=== PATIENT | male | born 1945 | race Caucasian/White ===

== ENCOUNTER 2020-04-16 17:13 | Emergency (ER) | payer MEDICARE, OTHER ==
[~2020-04-16] VITALS: Ht 193 cm; Wt 67.1 kg
--- OUTSIDE RECORDS SUMMARY | ~2020-04-16 | XMS | Encounter Summary ---
Demographics + + + | Address | [address] | | | [place] [address] | + + + | Home Phone | | + + + | Preferred Language | Unknown | + + + | Marital Status | Single | + + + | Jain Affiliation | Unknown | + + + | Race | White | + + + | Ethnic Group | Not or | + + + Author + + + | Author | [facility] | + + + | Organization | [facility] | + + + | Address | Unknown | + + + | Phone | Unavailable | + + + Support + + +---------+ + | Name | Relationship | Address | Phone | + + +---------+ + | Lesia Iniguez | ECON | Unknown | | + + +---------+ + Care Team Providers + +------+ + | Care Military Pay Clerk Name | Role | Phone | + +------+ + | No Pcp Per Patient | PCP | Unavailable | + +------+ + Reason for Referral PROC - Dept/Practice Procedure (Routine) +--------+--------+ + + + + | Status | Reason | Specialty | Diagnoses / | Referred By | Referred To | | | | | Procedures | Contact | Contact | +--------+--------+ + + + + | Closed | | Radiation | Diagnoses | Quintin, | Eduard, | | | | Oncology | Malignant | Garfield Garcia MD | MD Alexander | | | | | neoplasm of | [place] | [address] | | | | | upper lobe | A MEDICAL | [facility] | | | | | of left lung | [address] [place], | | | | | (HCC) | [address] | [place] | | | | | Procedures | [place] | [address] | | | | | SIMULATION | [address] | Phone: | | | | | IMAGING | [place], | [phone] | | | | | | [place] [address] | Fax: | | | | | | Phone: | [phone] | | | | | | [phone] | | | | | | | Fax: | | | | | | | [phone] | | +--------+--------+ + + + + Reason for Visit PROC - Dept/Practice Procedure (Routine) +--------+--------+ + + + + | Status | Reason | Specialty | Diagnoses / | Referred By | Referred To | | | | | Procedures | Contact | Contact | +--------+--------+ + + + + | Closed | | Radiation | Diagnoses | Defdelfina, | Eduard, | | | | Oncology | Malignant | Garfield Garcia MD | MD Alexander | | | | | neoplasm of | [place] | [address] [facility] | | | | | upper lobe | A MEDICAL | [facility] | | | | | of left lung | [address] | [address] [place], | | | | | (HCC) | [address] | [place] | | | | | Procedures | [place] | [address] | | | | | SIMULATION | [address]OS[address] | Phone: | | | | | IMAGING | [place], | [phone] | | | | | | [place] [address] | Fax: | | | | | | Phone: | [phone] | | | | | | [phone] | | | | | | | Fax: | | | | | | | [phone] | | +--------+--------+ + + + + Encounter Details +--------+ + + + + | Date | Type | Department | Care Team | Description | +--------+ + + + + | 02/16/ | Hospital | Radiation Oncology | | | | 2019 | Encounter | at [facility] [address] | | | | | | [address] | | | | | | [address] | | | | | | [place], [place] | | | | | | [address] | | | | | | [phone] | | | +--------+ + + + + Social History + + + +--------+ + | Tobacco Use | Types | Packs/Day | Years | Date | | | | | Used | | + + + +--------+ + | Former Smoker | Cigars, Cigarettes | 4 | 11 | Quit: 12/2018 | + + + +--------+ + + +---+---+---+ | Smokeless Tobacco: | | | | | Never Used | | | | + +---+---+---+ + + +---------+ + | Alcohol Use | Drinks/Week | oz/Week | Comments | + + +---------+ + | No | | | | + + +---------+ + + + + | Sex Assigned at | Date Recorded | | | | + + + | Not on file | | + + + documented as of this encounter Medications at Time of Discharge + + + +---------+ + + | Medication | Sig | Dispensed | Refills | Start | End Date | | | | | | Date | | + + + +---------+ + + | ascorbic acid | Take 100 mg by mouth | | 0 | | | | (vitamin C) 100 mg | three times daily. | | | | | | oral tablet | | | | | | + + + +---------+ + + | aspirin EC 81 mg | Take 81 mg by mouth | | 0 | | | | Oral tablet,delayed | once daily. | | | | | | release (DR/EC) | | | | | | + + + +---------+ + + | cephALEXin | Take 1 Cap by mouth | 30 Cap | 0 | 02/12/20 | | | (KEFLEX) 500 mg Oral | three times daily. | | | 13 | | | capsule | | | | | | + + + +---------+ + + | cholecalciferol | Take 1,000 Units by | | 0 | | | | (Vitamin D3) | mouth once daily. | | | | | | (VITAMIN D3) 1,000 | | | | | | | unit oral capsule | | | | | | + + + +---------+ + + | clindamycin 300 mg | Take 1 Cap by mouth | 1 Cap | 0 | 02/12/20 | | | Oral capsule | every eight hours. | | | 13 | | + + + +---------+ + + | docusate sodium | Take 100 mg by mouth | | 0 | | | | (STOOL SOFTENER) 100 | two times daily. | | | | | | mg Oral capsule | | | | | | + + + +---------+ + + | finasteride 1 mg | Take 1 mg by mouth | | 0 | | | | Oral tablet | once daily. | | | | | + + + +---------+ + + | folic acid 1 mg | Take 1 mg by mouth | | 0 | | | | Oral tablet | once daily. | | | | | + + + +---------+ + + | | Take 1 Tab by mouth | | 0 | | | | HYDROcodone-acetamin | every four hours as | | | | | | ophen 5-325 mg Oral | needed. Not to | | | | | | tablet | exceed 10 tablets | | | | | | | per any 24 hour | | | | | | | period. (Not to | | | | | | | exceed 3250 mg of | | | | | | | acetaminophen from | | | | | | | all products per 24 | | | | | | | hour period.) | | | | | + + + +---------+ + + | magnesium oxide | Take 250 mg by mouth | | 0 | | | | 250 mg oral tablet | once daily. | | | | | + + + +---------+ + + | metoprolol | Take by mouth two | | 0 | | | | tartrate 10 mg/mL | times daily. | | | | | | Oral Suspension | | | | | | + + + +---------+ + + | multivitamin oral | Take 1 tablet by | | 0 | | | | tablet | mouth once daily. | | | | | + + + +---------+ + + | omeprazole 10 mg | Take 10 mg by mouth | | 0 | | | | Oral capsule,delayed | once daily. | | | | | | release(/IVONNE) | | | | | | + + + +---------+ + + documented as of this encounter Plan of Treatment Not on filedocumented as of this encounter Procedures + +--------+ + + + | Procedure Name | Priori | Date/Time | Associated Diagnosis | Comments | | | ty | | | | + +--------+ + + + | SIMULATION IMAGING | Routin | 02/16/2019 | Malignant neoplasm | Results for this | | | e | 3:03 PM | of upper lobe of | procedure are in the | | | | PDT | left lung (HCC) | results section. | + +--------+ + + + documented in this encounter Results SIMULATION IMAGING (02/16/2019 3:03 PM PDT) + + | Specimen | + + | | + + + + + | Narrative | Performed At | + + + | Refer to the encounter notes for imaging results. 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
--- OUTSIDE RECORDS SUMMARY | ~2020-04-16 | XMS | Encounter Summary ---
Demographics + + + | Address | [address] | | | [place] [address] | + + + | Home Phone | | + + + | Preferred Language | Unknown | + + + | Marital Status | | + + + | Anabaptism Affiliation | 1026 | + + + | Race | White | + + + | Ethnic Group | Not or | + + + Author + + + | Author | [facility] | | | and [place] | + + + | Organization | [facility] | | | and [place] | + + + | Address | Unknown | + + + | Phone | Unavailable | + + + Support + + + + + | Name | Relationship | Address | Phone | + + + + + | Eliseo Carter | ECON | [address] | | | [place] | | [place] | | | | | [address] | | + + + + + | Jag Iniguez | ECON | Unknown | | + + + + + Care Team Providers + +------+ + | Care Sports Director Name | Role | Phone | + +------+ + | David Whitfield | PCP | | | MD | | | + +------+ + Encounter Details +--------+ + + + + | Date | Type | Department | Care Team | Description | +--------+ + + + + | 11/21/ | Imaging | [facility] | Provider, | | | 2019 | Exam | [facility] | [address] | | | | | IMAGING [address] | [address] | | | | | [address] | [place] [address] | | | | | [place] [address] | | | | | | [phone] | | | +--------+ + + + + Social History + +-------+ +--------+------+ | Tobacco Use | Types | Packs/Day | Years | Date | | | | | Used | | + +-------+ +--------+------+ | Never Assessed | | | | | + +-------+ +--------+------+ + + + | Sex Assigned at [...] | + +--------+ + + + | CT CHEST WO CONTRAST | Routin | 09/19/2017 | | Results for this | | | e | 1:40 PM | | procedure are in the | | | | PST | | results section. | + +--------+ + + + documented in this encounter Results CT Chest wo Contrast (09/19/2017 1:40 PM PST) + + | Specimen | + + | | + + + + + | Narrative | Performed At | + + + | External films for comparison only | [facility] | | | | | No results will be in the chart. | | + + + + +---------+ + + | Performing | Address | City/State/Zipcode | Phone Number | | Organization | | | | + +---------+ + + | [facility] | | | | + +---------+ + + documented in this encounter Visit Diagnoses Not on filedocumented in this encounter"
--- OUTSIDE RECORDS SUMMARY | ~2020-04-16 | XMS | Encounter Summary ---
Demographics + + + | Address | [address] | | | [place] [address] | + + + | Home Phone | | + + + | Preferred Language | Unknown | + + + | Marital Status | Single | + + + | Orthodoxy Affiliation | Unknown | + + + | Race | White | + + + | Ethnic Group | Not or | + + + Author + + + | Organization | Unknown | + + + | Address | Unknown | + + + | Phone | Unavailable | + + + Support + + +---------+ + | Name | Relationship | Address | Phone | + + +---------+ + | Lesia Iniguez | ECON | Unknown | | + + +---------+ + Care Team Providers + +------+ + | Care Police Or Patrol Park Officer Name | Role | Phone | + +------+ + | No Pcp Per Patient | PCP | Unavailable | + +------+ + Encounter Details +--------+--------+ + + + | Date | Type | Department | Care Team | Description | +--------+--------+ + + + | 03/02/ | Travel | | | | | 2019 | | | | | +--------+--------+ + + + Social History + + [...] Not on filedocumented as of this encounter Visit Diagnoses Not on filedocumented in this encounter"
--- OUTSIDE RECORDS SUMMARY | ~2020-04-16 | XMS | Encounter Summary ---
Demographics + + + | Address | [address] | | | [place] [address] | + + + | Home Phone | | + + + | Preferred Language | Unknown | + + + | Marital Status | Single | + + + | Jehovah'S Witness Affiliation | Unknown | + + + [...] Team Providers + +------+ + | Care Hotel Controller Name | Role | Phone | + +------+ + | No Pcp Per Patient | PCP | Unavailable | + +------+ + Encounter Details +--------+--------+ + + + | Date | Type | Department | Care Team | Description | +--------+--------+ + + + | 07/01/ | Travel | | | | | [...]
--- OUTSIDE RECORDS SUMMARY | ~2020-04-16 | XMS | Encounter Summary ---
Demographics + + + | Address | [address] | | | [place] [address] | + + + | Home Phone | | + + + | Preferred Language | Unknown | + + + | Marital Status | Single | + + + | Mormonism Affiliation | Unknown | + + + | Race | White | + + + | Ethnic Group | Not or | + + + Author + + + | Author | [facility] | + + + | Organization | [facility] | + + + | Address | Unknown | + + + | Phone | Unavailable | + + + Support + + +---------+ + | Name | Relationship | Address | Phone | + + +---------+ + | Lesia Iniguez | ECON | Unknown | | + + +---------+ + Care Team Providers + +------+ + | Care Billing Clinician Name | Role | Phone | + +------+ + | No Pcp Per Patient | PCP | Unavailable | + +------+ + Reason for Visit Intake Referral (Routine) +--------+--------+ + + + + | Status | Reason | Specialty | Diagnoses / | Referred By | Referred To | | | | | Procedures | Contact | Contact | +--------+--------+ + + + + | Closed | | Radiation | Diagnoses | Quintin | [facility] | | | | Oncology | Malignant | Garfield Garcia MD | [facility] | | | | | neoplasm of | [place] | [address] | | | | | upper lobe, | A MEDICAL | [address] | | | | | left | [address] | [place] | | | | | bronchus or | [address] | [address] | | | | | lung | [place] | floor | | | | | | [address] | [place], [place] | | | | | | [place], | [address] | | | | | | [place] [address] | Phone: | | | | | | Phone: | [phone] | | | | | | [phone] | Fax: | | | | | | Fax: | [phone] | | | | | | [phone] | | +--------+--------+ + + + + Encounter Details +--------+ + + + + | Date | Type | Department | Care Team | Description | +--------+ + + + + | 03/04/ | Hospital | Radiation Oncology | | | | 2019 | Encounter | at [facility] [address] | | | | | | [address] | | | | | | [address] | | | | | | [place], [place] | | | | | | [address] | | | | | | [phone] | | | +--------+ + + + [...] daily. | | | | | | release(/EC) | | | | | | + + + +---------+ + + documented as of this encounter Plan of Treatment Not on filedocumented as of this encounter Visit Diagnoses Not on filedocumented in this encounter"
--- OUTSIDE RECORDS SUMMARY | ~2020-04-16 | XMS | Encounter Summary ---
Demographics + + + | Address | [address] | | | [place] [address] | + + + | Home Phone | | + + + | Preferred Language | Unknown | + + + | Marital Status | | + + + | Adventism Affiliation | 1026 | + + + | Race | White | + + + | Ethnic Group | Not or | + + + Author + + + | Author | [facility] | | | and [place] | + + + | Organization | [facility] | | | [...] [place] | | | | | [address] | | + + + + + | Jag Iniguez | ECON | Unknown | | + + + + + Care Team Providers + +------+ + | Care Registered Physical Therapist Name | Role | Phone | + +------+ + | David Whitfield | PCP | | | MD | | | + +------+ + Encounter Details +--------+ + + + + | Date | Type | Department | Care Team | Description | +--------+ + + + + | 11/24/ | Imaging | [facility] | Provider, | | | 2019 | Exam | [facility] | [address] | | | | | IMAGING [address] | [address] | | | | | [address] | [place] [address] | | | | | [place] [address] | | | | | | [phone] | | | +--------+ + + + [...] | + +--------+ + + + | XR CHEST 2 VIEWS | Routin | 04/23/2018 | | Results for this | | | e | 2:00 PM | | procedure are in the | | | | PDT | | results section. | + +--------+ + + + documented in this encounter Results XR Chest 2 Vws (04/23/2018 2:00 PM PDT) + + | Specimen | [...]
--- OUTSIDE RECORDS SUMMARY | ~2020-04-16 | XMS | Encounter Summary ---
Demographics + + + | Address | [address] | | | [place] [address] | + + + | Home Phone | | + + + | Preferred Language | Unknown | + + + | Marital Status | | + + + | Baptist Affiliation | 1026 | + + + | Race | White | + + + | Ethnic Group | Not or | + + + Author + + + | Author | [facility] | | | and [place] | + + + | Organization | [facility] | | | and [...] [place] | | | | | [address] | | + + + + + | Jag Iniguez | ECON | Unknown | | + + + + + Care Team Providers + +------+ + | Care Scrap Iron Loader Name | Role | Phone | + +------+ + | Skyla Dempsey | PCP | | + +------+ + Reason for Referral Diagnostic/Screening (Routine) +--------+--------+ + + + + | Status | Reason | Specialty | Diagnoses / | Referred By | Referred To | | | | | Procedures | Contact | Contact | +--------+--------+ + + + + | Closed | | Radiology | Diagnoses | Roselyn, | [facility] | | | | | Solitary | Skyla, NURSE DISCHARGE PLANNER | [facility] | | | | | pulmonary | [address] [facility] | | | | | nodule | [facility] | MEDICAL | | | | | Procedures | [address] [place] | [facility] [address] | | | | | PET CT Skull | [place], [place] | [place] | | | | | Base To Mid | [id number] | [place], | | | | | Thigh | Phone: | [place] [address] | | | | | | [phone] | Phone: | | | | | | Fax: | [phone] | | | | | | [phone] | Fax: | | | | | | | [phone] | +--------+--------+ + + + + Reason for Visit Auth/Cert +--------+--------+ + + + + | Status | Reason | Specialty | Diagnoses / | Referred By | Referred To | | | | | Procedures | Contact | Contact | +--------+--------+ + + + + | | | | | | | +--------+--------+ + + + + Encounter Details +--------+ + + + + | Date | Type | Department | Care Team | Description | +--------+ + + + + | 11/27/ | Hospital | [facility] | Skyla Dempsey FNP | Solitary pulmonary | | 2019 | Encounter | MED CTR PET SCAN | [address] | nodule | | | | [address] [place] | [place], [place] | | | | | [place] [address] | [address] | | | | | [phone] | | | +--------+ + + + [...] | + +--------+ + + + | PET CT SKULL BASE TO | Routin | 11/27/2018 | Solitary pulmonary | Results for this | | MID THIGH | e | 12:41 PM | nodule | procedure are in the | | | | PDT | | results section. | + +--------+ + + + documented in this encounter Results PET CT Skull Base To Mid Thigh (11/27/2018 12:41 PM PDT) + + | Specimen | + + | | + + + +--------- ------+ | Narrative | Performe d At | + +--------- ------+ | PET CT SKULL | [facility] | | BASE TO MID THIGH 11/27/2018 10:21 AM HISTORY: Solitary pulmonary | | | nodule. COMPARISON: 09/29/2018, 11/03/2018, 04/08/2018 PROTOCOL: The | | | patient was initially injected with 8.9 mCi FDG F-18. After | | | aone-hour delay, whole body PET images were acquired. Low dose | | | nondiagnostic CTimages were obtained for attenuation correction and | | | fusion. The patient'sfasting blood glucose level at the time of | | | injection was 102 mg/dL. FINDINGS:HEAD AND NECK:No suspicious FDG | | | activity identified. Moderate mucosal thickening of the left maxillary | | | sinus. Sialolithiasis seen inthe left palatine and adenoid tonsils. | | | Presumably physiologic uptake within thesalivary glands and vocal | | | folds. CHEST:15 x 10 mm spiculated nodule in the left lung apex | | | demonstrates avid FDG uptake(SUV max 10.8). No suspicious | | | lymphadenopathy. Multiple other areas ofminimal/tiny ground glass | | | nodularity as well as a few tiny 2 to 3 mm nodules arereidentified | | | which are stable and without evidence of FDG uptake. A few othertiny | | | areas of minimal scarring are slightly irregular nodularity are also | | | seenwithout FDG uptake. Coronary artery calcifications are present. | | | ABDOMEN AND PELVIS:No suspicious FDG uptake identified. Presumably | | | physiologic activity within thebowel, kidneys, liver, and bladder. A | | | few calcified gallstones are present. Small nonobstructive punctate | | | calculiare present bilaterally. Severe aortic and aortic branching | | | vesselatherosclerotic calcifications with multiple areas of stenosis | | | of the iliacvessels. Multiple noninflamed colonic diverticula are seen | | | involving the sigmoidcolon. Severe heterogeneous enlargement of the | | | prostate gland. Urinary bladderwall is mildly thickened, likely | | | related to nondistention and chronic outletobstruction in this patient | | | with BPH. More focal area of FDG uptake within theright common iliac | | | bifurcation/proximal sternal iliac junction is thought torepresent | | | adjacent bowel as correlating with noncontrast CT imaging. SOFT | | | TISSUES AND OSSEOUS STRUCTURES:No suspicious FDG uptake is identified. | | | Multilevel cervical, thoracic, and lumbar degenerative disc disease | | | and facetspondylosis. No convincingly suspicious lytic or blastic | | | lesion identified. Afew sclerotic foci are reidentified in the pelvis | | | which appear benign boneislands. IMPRESSION -15 x 10 mm spiculated | | | nodule in the left lung apex demonstrates avid FDG uptake(SUV max | | | 10.8). --Findings are highly concerning for lung neoplasm. No | | | suspicious lymphadenopathy to suggest metastatic disease. Multiple | | | other areas of minimal/tiny ground glass nodularity as well as a | | | fewtiny 2 to 3 mm nodules are reidentified which are stable and | | | without evidence ofFDG uptake. These are thought to represent chronic | | | changes at this time withcontinued low to CT of the chest surveillance | | | imaging recommended. Minimal nonobstructive nephrolithiasis. | | | Significant BPH. Dictated and Signed by: Howard Mahoney MD | | | Electronically signed: 12/02/2018 10:31 PM | | | | | | Multilevel cervical, thoracic, and lumbar degenerative disc disease and facet | | |spondylosis. No convincingly suspicious lytic or blastic lesion identified. A | | |few sclerotic foci are reidentified in the pelvis which appear benign bone | | |islands. | | | | | |IMPRESSION - | | |15 x 10 mm spiculated nodule in the left lung apex demonstrates avid FDG uptake | | |(SUV max 10.8). | | |--Findings are highly concerning for lung neoplasm. | | | | | |No suspicious lymphadenopathy to suggest metastatic disease. | | | | | |Multiple other areas of minimal/tiny ground glass nodularity as well as a few | | |tiny 2 to 3 mm nodules are reidentified which are stable and without evidence of | | |FDG uptake. These are thought to represent chronic changes at this time with | | |continued low to CT of the chest surveillance imaging recommended. | | | | | |Minimal nonobstructive nephrolithiasis. | | | | | |Significant BPH. | | | | | |Dictated and Signed by: Howard Mahoney MD | | | Electronically signed: 12/02/2018 10:31 PM | | | | | + +--------- ------+ + + | Procedure Note | + + | Bobby, Rad Results In - 12/02/2018 10:[address] SKULL BASE TO MID THIGH | | 11/27/2018 10:21 AMHISTORY: Solitary pulmonary nodule.COMPARISON: 09/29/2018, 11/03/2018, | | 04/08/2018PROTOCOL: The patient was initially injected with 8.9 mCi FDG F-18. After | | aone-hour delay, whole body PET images were acquired. Low dose nondiagnostic CTimages | | were obtained for attenuation correction and fusion. The patient'sfasting blood glucose | | level at the time of injection was 102 mg/dL.FINDINGS:HEAD AND NECK:No suspicious FDG | | activity identified.Moderate mucosal thickening of the left maxillary sinus. | | Sialolithiasis seen inthe left palatine and adenoid tonsils. Presumably physiologic | | uptake within thesalivary glands and vocal folds.CHEST:15 x 10 mm spiculated nodule in | | the left lung apex demonstrates avid FDG uptake(SUV max 10.8). No suspicious | | lymphadenopathy. Multiple other areas ofminimal/tiny ground glass nodularity as well as | | a few tiny 2 to 3 mm nodules arereidentified which are stable and without evidence of | | FDG uptake. A few othertiny areas of minimal scarring are slightly irregular nodularity | | are also seenwithout FDG uptake. Coronary artery calcifications are present.ABDOMEN AND | | PELVIS:No suspicious FDG uptake identified. Presumably physiologic activity within | | thebowel, kidneys, liver, and bladder.A few calcified gallstones are present. Small | | nonobstructive punctate calculiare present bilaterally. Severe aortic and aortic | | branching vesselatherosclerotic calcifications with multiple areas of stenosis of the | | iliacvessels. Multiple noninflamed colonic diverticula are seen involving the | | sigmoidcolon. Severe heterogeneous enlargement of the prostate gland. Urinary | | bladderwall is mildly thickened, likely related to nondistention and chronic | | outletobstruction in this patient with BPH. More focal area of FDG uptake within | | theright common iliac bifurcation/proximal sternal iliac junction is thought torepresent | | adjacent bowel as correlating with noncontrast CT imaging.SOFT TISSUES AND OSSEOUS | | STRUCTURES:No suspicious FDG uptake is identified. Multilevel cervical, thoracic, and | | lumbar degenerative disc disease and facetspondylosis. No convincingly suspicious lytic | | or blastic lesion identified. Afew sclerotic foci are reidentified in the pelvis which | | appear benign boneislands.IMPRESSION -15 x 10 mm spiculated nodule in the left lung apex | | demonstrates avid FDG uptake(SUV max 10.8). --Findings are highly concerning for lung | | neoplasm.No suspicious lymphadenopathy to suggest metastatic disease. Multiple other | | areas of minimal/tiny ground glass nodularity as well as a fewtiny 2 to 3 mm nodules are | | reidentified which are stable and without evidence ofFDG uptake. These are thought to | | represent chronic changes at this time withcontinued low to CT of the chest surveillance | | imaging recommended.Minimal nonobstructive nephrolithiasis.Significant BPH.Dictated and | | Signed by: Howard Mahoney MD Electronically signed: 12/02/2018 10:31 PM | |atherosclerotic calcifications with multiple areas of stenosis of the iliac | |vessels. Multiple noninflamed colonic diverticula are seen involving the sigmoid | |colon. Severe heterogeneous enlargement of the prostate gland. Urinary bladder | |wall is mildly thickened, likely related to nondistention and chronic outlet | |obstruction in this patient with BPH. More focal area of FDG uptake within the | |right common iliac bifurcation/proximal sternal iliac junction is thought to | |represent adjacent bowel as correlating with noncontrast CT imaging. | | | |SOFT TISSUES AND OSSEOUS STRUCTURES: | |No suspicious FDG uptake is identified. | | | | Multilevel cervical, thoracic, and lumbar degenerative disc disease and facet | |spondylosis. No convincingly suspicious lytic or blastic lesion identified. A | |few sclerotic foci are reidentified in the pelvis which appear benign bone | |islands. | | | |IMPRESSION - | |15 x 10 mm spiculated nodule in the left lung apex demonstrates avid FDG uptake | |(SUV max 10.8). | |--Findings are highly concerning for lung neoplasm. | | | |No suspicious lymphadenopathy to suggest metastatic disease. | | | |Multiple other areas of minimal/tiny ground glass nodularity as well as a few | |tiny 2 to 3 mm nodules are reidentified which are stable and without evidence of | |FDG uptake. These are thought to represent chronic changes at this time with | |continued low to CT of the chest surveillance imaging recommended. | | | |Minimal nonobstructive nephrolithiasis. | | | |Significant BPH. | | | |Dictated and Signed by: Howard Mahoney MD | | Electronically signed: 12/02/2018 10:31 PM | + + + +---------+ + + | Performing | Address | City/State/Zipcode | Phone Number | | Organization | | | | + +---------+ + + | [facility] | | | | + +---------+ + + documented in this encounter Visit Diagnoses + + | Diagnosis | + + | Solitary pulmonary nodule | + + documented in this encounter Administered Medications + +--------+ + +------+------+ | Medication Order | MAR | Action | Dose | Rate | Site | | | Action | Date | | | | + +--------+ + +------+------+ | fluorine-18 FDG injection 8.86 | Given | 16/ | 8.86 | | | | millicurie 8.86 millicurie, | | 19 10:21 | millicur | | | | Intravenous, ONCE, [facility] 11/27/18 at | | AM PDT | ies | | | | 1030, For 1 dose | | | | | | + +--------+ + +------+------+ +---+---+ | | | +---+---+ documented in this encounter"
--- OUTSIDE RECORDS SUMMARY | ~2020-04-16 | XMS | Encounter Summary ---
Demographics + + + | Address | [address] | | | [place] [address] | + + + | Home Phone | | + + + | Preferred Language | Unknown | + + + | Marital Status | Single | + + + | Faith Affiliation | Unknown | + + + | Race | White | + + + | Ethnic Group | Not or | + + + Author + + + | Author | [facility] | + + + | Organization | [facility] | + + + | Address | Unknown | + + + | Phone | Unavailable | + + + Support + + +---------+ + | Name | Relationship | Address | Phone | + + +---------+ + | Lesia Iniguez | ECON | Unknown | | + + +---------+ + Care Team Providers + +------+ + | Care [facility] Traffic [facility] Specialist Center Name | Role | Phone | + +------+ + | No Pcp Per Patient | PCP | Unavailable | + +------+ + Reason for Visit + +--------+ + | Reason | Onset | Comments | | | Date | | + +--------+ + | RT Treatment Summary | 03/06/ | | | | 2019 | | + +--------+ + Encounter Details +--------+ + + + + | Date | Type | Department | Care Team | Description | +--------+ + + + + | 03/06/ | Documentati | Radiation Oncology | Zhang Myles MD | RT Treatment Summary | | 2019 | on | at [facility] [address] | [address] [facility] | | | | | [address] | [address] [place], | | | | | [place], [address] floor | [place] [address] | | | | | [place], [place] | [phone] | | | | | [address] | | | | | | [phone] | | | +--------+ + + + [...] + + documented as of this encounter Miscellaneous Notes Telephone Encounter - Zhang Myles MD - 10/20/2019 11:58 AM PD[facility]AD[facility] IDENTIFICATION: Yoni Iniguez is a 73 y.o. 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 TREATMENT TOLERANCE AND RESPONSE: The patient tolerated treatment well without unexpected or significant acute side effects. CTCAE 5.0 Common symptoms: G1 Fatigue (relieved by rest) FOLLOW UP: He will be scheduled for a follow up with Dr. Chapa. For further details about the treatment plan please contact our office at [phone]. Zhang Myles MD Dept of Radiation Medicine [facility] documented in this encounte r Plan of Treatment Not on filedocumented as of this encounter Visit Diagnoses Not on filedocumented in this encounter"
--- OUTSIDE RECORDS SUMMARY | ~2020-04-16 | XMS | Encounter Summary ---
Demographics + + + | Address | [address] | | | [place] [address] | + + + | Home Phone | | + + + | Preferred Language | Unknown | + + + | Marital Status | Single | + + + | Bahai Affiliation | Unknown | + + + [...] Team Providers + +------+ + | Care Supply Chain Buyer Name | Role | Phone | + +------+ + | No Pcp Per Patient | PCP | Unavailable | + +------+ + Encounter Details +--------+--------+ + + + | Date | Type | Department | Care Team | Description | +--------+--------+ + + + | 02/24/ | Travel | | | | | [...]
--- OUTSIDE RECORDS SUMMARY | ~2020-04-16 | XMS | Encounter Summary ---
Demographics + + + | Address | [address] | | | [place] [address] | + + + | Home Phone | | + + + | Preferred Language | Unknown | + + + | Marital Status | Single | + + + | Moravian Affiliation | Unknown | + + + [...] Team Providers + +------+ + | Care Building Serviceman Name | Role | Phone | + +------+ + | No Pcp Per Patient | PCP | Unavailable | + +------+ + Encounter Details +--------+--------+ + + + | Date | Type | Department | Care Team | Description | +--------+--------+ + + + | 02/16/ | Travel | | | | | [...]
--- OUTSIDE RECORDS SUMMARY | ~2020-04-16 | XMS | Encounter Summary ---
Demographics + + + | Address | [address] | | | [place] [address] | + + + | Home Phone | | + + + | Preferred Language | Unknown | + + + | Marital Status | | + + + | Hoahaoism Affiliation | 1026 | + + + | Race | White | + + + | Ethnic Group | Not or | + + + Author + + + | Author | [facility] | | | and [place] | + + + | Organization | [facility] | | | and [...] [place] | | | | | [address] | | + + + + + | Jag Iniguez | ECON | Unknown | | + + + + + Care Team Providers + +------+ + | Care Electronic Controls Repairer Supervisor Name | Role | Phone | + +------+ + PCP | Unavailable | + +------+ + Encounter Details +--------+ + + + + | Date | Type | Department | Care Team | Description | +--------+ + + + + | 05/16/ | Hospital | [facility] | | | | 1999 | Encounter | MED CTR XRAY [address] | | | | | | [place] | | | | | | [place] [address] | | | | | | [phone] | | | +--------+ + + + [...]
--- OUTSIDE RECORDS SUMMARY | ~2020-04-16 | XMS | Encounter Summary ---
Demographics + + + | Address | [address] | | | [place] [address] | + + + | Home Phone | | + + + | Preferred Language | Unknown | + + + | Marital Status | Single | + + + | Mormon Affiliation | Unknown | + + + | Race | White | + + + | Ethnic Group | Not or | + + + Author + + + | Author | [facility] | + + + | Organization | [facility] | + + + | Address | Unknown | + + + | Phone | Unavailable | + + + Support + + +---------+ + | Name | Relationship | Address | Phone | + + +---------+ + | Lesia Iniguez | ECON | Unknown | | + + +---------+ + Care Team Providers + +------+ + | Care Finance Manager Name | Role | Phone | + +------+ + | No Pcp Per Patient | PCP | Unavailable | + +------+ + Reason for Visit + + + | Reason | Comments | + + + | Mohs' chemosurgery | scc penis | + + + Other (Routine) +--------+ + + + + + | Status | Reason | Specialty | Diagnoses / | Referred By | Referred To | | | | | Procedures | Contact | Contact | +--------+ + + + + + | Closed | Specialty | Dermatology | Diagnoses | Non-[facility] | Drm Surg | | | Services | | Personal | Epic Dept | Outpt Hos | | | Required | | history of | | [facility] [address] | | | | other | | [address] | | | | | malignant | | Center for | | | | | neoplasm of | | Health and | | | | | skin | | Healing, | | | | | Suspected | | Building [address], | | | | | SCC on penis | | 5th Floor | | | | | Procedures | | [place], [place] | | | | | [facility] | | [address] | | | | | | | Phone: | | | | | | | [phone] | | | | | | | Fax: | | | | | | | [phone] | +--------+ + + + + + Encounter Details +--------+ + + + + | Date | Type | Department | Care Team | Description | +--------+ + + + + | 02/11/ | Procedure | Dermatology | Aide Linares MD | [facility]' chemosurgery | | 2012 | | Surgery at [facility] [address] | (scc penis) | | | | [address] | [place], [place] | | | | | for Health and | [address] | | | | | [place] [address], | [phone] | | | | | [address] [place] [address] | | | | | | [place], [place] | | | | | | [address] | | | | | | [phone] | | | +--------+ + + + + Social History + + + +--------+------+ | Tobacco Use | Types | Packs/Day | Years | Date | | | | | Used | | + + + +--------+------+ | Current Every Day | Cigars, Cigarettes | 4 | | | | Smoker | | | | | + + + +--------+------+ + + +---------+ + | Alcohol Use | Drinks/Week | oz/Week | Comments | + + +---------+ + | No | | | | + + +---------+ + + + + | Sex Assigned at | Date Recorded | | | | + + + | Not on file | | + + + documented as of this encounter Last Filed Vital Signs + +---------+ + + | Vital Sign | Reading | Time Taken | Comments | + +---------+ + + | Blood Pressure | 106/58 | 02/11/2013 9:19 AM | | | | | PDT | | + +---------+ + + | Pulse | 94 | 02/11/2013 9:19 AM | | | | | PDT | | + +---------+ + + | Temperature | - | - | | + +---------+ + + | Respiratory Rate | - | - | | + +---------+ + + | Oxygen Saturation | - | - | | + +---------+ + + | Inhaled Oxygen | - | - | | | Concentration | | | | + +---------+ + + | Weight | - | - | | + +---------+ + + | Height | - | - | | + +---------+ + + | Body Mass Index | - | - | | + +---------+ + + documented in this encounter Patient Instructions Patient Instructions Mikaela Horvath LPN - 02/11/2013 2:[address] [facility] General Care-All Wounds -Apply ice over the surgical site 10 minutes for every hour for the first day. -Avoid aspirin, ibuprofen, alcohol and smoking for the next 5 days. -Reduce strenuous activity for the next week. -Do not get bandage wet. Change bandage in 24 hours. -Take Tylenol, 2 tablets every 4-6 hours as needed for pain: not to exceed 3 grams in one 2 4 hours period; or prescription as directed. -For wounds on the arms or legs, keep site elevated above the heart for the next 24 hours. -For lip wounds, avoid hard, crunchy food for several days. Expect swelling for up to 1 wee k. -If bleeding occurs, hold direct pressure for 20 minutes. If the bleeding does not discont inue, please call the office. Suture/Staple Wound Care Clean line of stitches or pascual daily with soap and water. The area should be clear of an y drainage or crusts. Apply petrolatum ointment to suture/staple line. Do not cover if possible. If needed, you may cover with Telfa and tape into place. When uncovered, reapply ointment throughout day to keep moist with layer at all times. You may get the area wet in the shower after bandage is removed, however, do not let the wa ter hit the wound directly. Pat the area dry after showering, and reapply ointment. If you have steri-strips then replace them when they fall off in approximately 10-14 days. You may get the area wet. What to Expect------Sutured/Stapled Wounds You may experience numbness that is usually temporary. There will be bruising and swelling that can last between 1 and 2 weeks. Areas of the mouth and eye may last longer. The sutured area will be pink, swollen and tender for the first few days. The area should l ook and feel better each day after this point. Skin near the surgery site may appear and feel tight. This relaxes in time. A scar is stron g at 30 days, but not mature for 6 months or more. Stitches below the skin will be absorbed by the body within 2-3 months. Sometimes a stitch works its way up through the skin; this is not necessarily a problem. If you have any questions about this, please call. Call the Office If... a. any of the bandages become saturated with blood. If your site bleeds, hold direct press ure for 20 minutes and phone the clinic. b. you are having a great deal of pain, not relieved by Tylenol or your prescription medic ation. Pain after 48 hours is not expected. c. the wound appears to be worse instead of better each day (Increased pain, redness, warm th and drainage) d. your graft bandage becomes wet with drainage or is more painful than the day before How to Reach Us [phone] Toll-free [phone] Evenings and Weekends: [phone] documented in this encounter Progress Notes Aide Linares MD - 02/11/2013 5:15 PM PDT Chief Complaint: Squamous Cell Carcinoma located on the left lateral penile base. Referring Physician: Jordi Martinez History of Present Illness: Patient presents with the above diagnosis which has been present for 3 years. Previous callie tment included cryotherapy to area one time approx 3 years ago. Past history of other skin cancers yes. Past Medical History reviewed. Review of Systems: Negative for other skin complaints. Negative for constitutional sympto ms. Physical Examination: BP 106/58 | Pulse 94 Patient is alert and oriented. Extra ocular movements are intact. Located on the left lat eral penile base is an exophytic, dome-shaped nodule with central crateriform ulceration and hyperkeratosis. There is no palpable lymphadenopathy. Assessment and Plan: Primary Squamous Cell Carcinoma located on the left lateral penile bas e. Mohs micrographic surgery is indicated because of ill-defined borders. The procedure and alternatives were discussed, questions were answered and the risks includ ing but not limited to infection, bleeding, scarring, unsatisfactory results, nerve damage a nd recurrence were explained. The patient felt comfortable and wished to proceed with Mohs surgery later on today. Tissue obtained during this procedure was processed, read and resulted in [facility], [address] [facility] [place] [address] MOHS MICROGRAPHIC SURGERY PROCEDURE NOTE 02/11/2013 ATTENDING SURGEON: Aide Linares M.D. CHICKEN STUFFER: Marixa Agrawal M.D. ASSESSMENT: Taken and Recorded INDICATIONS: Yoni Iniguez is a 67 y.o. male who presents with primary squamous cell ca rcinoma located on the left lateral penile base, with a pretreatment lesion size of 2.5x 2.2 cm. Because of the size, site, poorly defined borders and diagnosis of the lesion, it is f elt that it is best treated with Mohs micrographic surgery. Alternative surgical and nonsur gical therapies were discussed. The risks including but not limited to bleeding, infection, scarring, nerve damage, unsatisfactory results, and recurrence were explained to the patien t prior to obtaining written and verbal informed consent for Mohs surgery. STAGE 1: The patient was placed supine on the operating room table. The wound was defined and infiltrated with 1% Lidocaine with Epinephrine. The area was then debulked. Initial ex cisions were made around the clinical and debulk markings and hemostasis was obtained by madi ctrodessication. A dressing was placed. Tissue was divided into two specimens which were m apped, color coded at their margins, and frozen sectioning was performed. Microscopic tumor was found persisting in 2 of the specimens. The histology showed full thickness epithelial hyperplasia with dyskeratotic and pleomorphic keratinocytes extending broadly through the e ntire epidermis and reticular dermis. STAGE 2: The patient was returned to the operative suite. The area of positivity was deli neated, infiltrated with 1% Lidocaine with Epinephrine, and excised. Tissue was divided int o one specimen which was again marked, color-coded, and frozen sectioning was performed. H emostasis was obtained in the usual manner, and a dressing placed. Microscopic tumor was fo und persisting in none of the specimens. With the lesion clear of microscopic tumor, surger y was considered complete. Following surgery, the defect measures as follows: 3.0cm x 4.2cm . FINAL DIAGNOSIS: Primary squamous cell carcinoma of the left lateral penile base. CONDITION AT TERMINATION OF THERAPY: Carcinoma removed. Patient reports no pain after the procedure. CLOSURE: RECONSTRUCTION PROCEDURE NOTE COMPLEX LINEAR LAYERED CLOSURE SURGEON: Aide Linares M.D. PUBLIC HEALTH ASSISTANT: Marixa Agrawal M.D. Prior to beginning the procedure, patient identity was verified, as well as the procedure t o be performed and the site. All equipment required was ready and available. The patient wa s positioned appropriately. INDICATIONS: The patient was left with a 3.0 x 4.2 cm. defect on the left lateral penile b ase following removal of a squamous cell carcinoma with Mohs micrographic surgery. Various reconstructive modalities were discussed with the patient, and it was decided that a complex linear layered closure would best preserve normal anatomical and functional relationships. After a discussion of the risks including but not limited to bleeding, scarring, infection, nerve damage, unsatisfactory results, and wound dehiscense, informed consent was obtained, and the patient underwent the procedure as follows. PROCEDURE: The patient was taken to the operative suite and placed supine on the operating room table. The area was anesthetized with 1% Lidocaine with Epinephrine. The area was wash ed with Betadine, rinsed with sterile saline, and draped with sterile towels. The wound edge s were debeveled, and because of the tension the wound was undermined extensively in all dir ections. Hemostasis was obtained with spot electrodessication. The deep subcutaneous tissue including fascia and muscle was re-approximated using 4-0 Polysorb buried sutures. The derm is was carefully reapproximated using 4-0 and 5-0 Polysorb buried sutures. Redundant cones w ere removed as Burow's triangles superior and inferior to align with the relaxed skin tensio n lines in a curvilinear fashion. The epidermis was closed and approximated using 5-0 chromi c gut sutures. A sterile pressure dressing was applied, and wound care instructions were giv en. Final wound length 7.4 cm. FINAL DIAGNOSIS: Primary squamous cell carcinoma of the left lateral penile base. FINAL PROCEDURE: Complex linear layered closure COMPLICATIONS: None Patient reports no pain after the procedure. Ayse Amaro LPN - 02/11/2013 2:49 PM PDTPatient/Family Readiness to Learn: The following pertains to: patient. Accurately explains reasons for visit and accurately relates medical history: yes. Accurately describes the likely alteration in self-care routines/abilities resulting from t reatment: yes. Able to provide names and reasons for taking current medications and dosages: yes. Able to follow proposed treatment plan for diet, activity and/or medication without difficu lty: yes. Learning Needs: None identified and Wound care. Barriers: None identified. Referral To: No referral required. Preferred Learning Method: Verbal , Written and Visual/demonstration. Teaching: Written instructions given and explained: . Patient/Family Response to Teaching: Verbalizes understanding of information/instructions given: Yes. Demonstrates ability to perform required procedure: Yes. documented in this encounter Procedure Notes Other, Faculty - 04/08/2013 10:41 AM PDTAssociated Order(s): PROCEDURE NOTEElectronically s igned by Faculty Other at 04/08/2013 10:41 AM PDTdocumented in this encounter Miscellaneous Notes Scan - Other, Faculty - 02/27/2013 1:01 PM PDTElectronically signed by Faculty Other at 1:01 PM PDTScan - Other, Faculty - 02/16/2013 3:04 PM PDT can - Other, Faculty - 02/16/2013 3:04 PM PDTElec tronically signed by Faculty Other at 02/16/2013 3:04 PM PDTScan - Other, Faculty - 013 2:47 PM PDT documented in this encounter Plan of Treatment Not on filedocumented as of this encounter Procedures + +--------+ + + + | Procedure Name | Priori | Date/Time | Associated Diagnosis | Comments | | | ty | | | | + +--------+ + + + | PROCEDURE NOTE | Routin | 08/18/2015 | | Results for this | | | e | 9:23 PM | | procedure are in the | | | | PST | | results section. | + +--------+ + + + | W[place] RADHA ADDL STAGE | Routin | 02/12/2013 | Squamous cell | | | | e | 4:15 PM | carcinoma of penis | | | | | PDT | (HCC) | | + +--------+ + + + | MOSHE GARCIA,1 | Routin | 02/12/2013 | Squamous cell | | | STAGE,H/N/HF/G | e | 4:15 PM | carcinoma of penis | | | | | PDT | (HCC) | | + +--------+ + + + | [place] GERARD CMPL WND | Routin | 02/12/2013 | Squamous cell | | | HEAD,FAC,HAND | e | 4:15 PM | carcinoma of penis | | | 2.6-7.5 | | PDT | (HCC) | | + +--------+ + + + documented in this encounter Results PROCEDURE NOTE (08/18/2015 9:23 PM PST) + + | Transcriptions | + + | Marissa Can - 04/08/2013 10:41 AM PDT | + + documented in this encounter Visit Diagnoses + + | Diagnosis | + + | 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
--- OUTSIDE RECORDS SUMMARY | ~2020-04-16 | XMS | Encounter Summary ---
Demographics + + + | Address | [address] | | | [place] [address] | + + + | Home Phone | | + + + | Preferred Language | Unknown | + + + | Marital Status | | + + + | Scientology Affiliation | 1026 | + + + | Race | White | + + + | Ethnic Group | Not or | + + + Author + + + | Author | [facility] | | | and [place] | + + + | Organization | [facility] | | | and [...] [place] | | | | | [address] | | + + + + + | Jag Iniguez | ECON | Unknown | | + + + + + Care Team Providers + +------+ + | Care Route Contractor Name | Role | Phone | + [...] | | | | YFN RAMSEY | [place] [address] | | | | | [place] [address] | | | | | | [phone] | | | +--------+ + + + [...] CT CHEST WO CONTRAST | Routin | 09/23/2014 | | Results for this | | | e | 11:00 AM | | procedure are in the | | | | PDT | | results section. | + +--------+ + + + documented in this encounter Results CT Chest wo Contrast (09/23/2014 11:00 AM PDT) + + | Specimen | + [...]
--- OUTSIDE RECORDS SUMMARY | ~2020-04-16 | XMS | Encounter Summary ---
Demographics + + + | Address | [address] | | | [place] [address] | + + + | Home Phone | | + + + | Preferred Language | Unknown | + + + | Marital Status | Single | + + + | Latter-Day Affiliation | Unknown | + + + | Race | White | + + + | Ethnic Group | Not or | + + + Author + + + | Author | [facility] | + + + | Organization | [facility] | + + + | Address | Unknown | + + + | Phone | Unavailable | + + + Support + + +---------+ + | Name | Relationship | Address | Phone | + + +---------+ + | Lesia Iniguez | ECON | Unknown | | + + +---------+ + Care Team Providers + +------+ + | Care Pension Adviser Name | Role | Phone | + +------+ + | No Pcp Per Patient | PCP | Unavailable | + +------+ + Reason for Visit + +--------+ + | Reason | Onset | Comments | | | Date | | + +--------+ + | On Treatment Visit | 02/24/ | | | (OTV) | 2019 | | + +--------+ + Encounter Details +--------+---------+ + + + | Date | Type | Department | Care Team | Description | +--------+---------+ + + + | 02/24/ | Office | Radiation Oncology | Alexander Chapa MD | Encounter for | | 2019 | Visit | at [facility] [address] | [address] [facility] | radiotherapy | | | | [address] | [facility], | (Primary Dx) | | | | Pavilion, 4th floor | [place] [address] | | | | | [place], [place] | [phone] | | | | | [address] | | | | | | [phone] | | | +--------+---------+ + + + Social History + + [...] this encounter Last Filed Vital Signs + + + + + | Vital Sign | Reading | Time Taken | Comments | + + + + + | Blood Pressure | 151/60 | 02/24/2019 6:00 PM | | | | | PDT | | + + + + + | Pulse | 62 | 02/24/2019 6:00 PM | | | | | PDT | | + + + + + | Temperature | 36.8 C (98.2 F) | 02/24/2019 6:00 PM | | | | | PDT | | + + + + + | Respiratory Rate | 16 | 02/24/2019 6:00 PM | | | | | PDT | | + + + + + | Oxygen Saturation | 99% | 02/24/2019 6:00 PM | room air | | | | PDT | | + + + + + | Inhaled Oxygen | - | - | | | Concentration | | | | + + + + + | Weight | 66.2 kg (146 lb) | 02/24/2019 6:00 PM | | | | | PDT | | + + + + + | Height | - | - | | + + + + + | Body Mass Index | - | - | | + + + + + documented in this encounter Patient Instructions Patient Instructions Alexander Chapa MD - 02/24/2019 6:50 PM PDT4 more to go! Next treatment 02/26 CT scan after Thanksgiving documented in this encounter Progress Notes Alexander Chapa MD - 02/24/2019 6:50 PM PDTJust starting SBRT T1bN0 (2.1 cm x 1.2 cm) SCCA PATRIA He is medically inoperable We plan SBRT for this lesion 11 Gy x 5 to 55 Gy starting on 02/24/2019. Sets up very well BP 151/60 | Pulse 62 | Temp 36.8 C (98.2 F) (Oral) | Resp 16 | Wt 66.2 kg (146 lb) | SpO2 99% Comment: room air Lungs sound good Continue SBRT Next treatment 02/[address] Myles has ordered non contrast chest CT for after Thanksgiving I'll see him then and then follow up at the [facility] Tino Hameed MA - 0 02/24/2019 6:50 PM PDT Nursing Note Patient here for an On Treatment Visit. Completed 1 fractions of a planned 5. Current dose 1100 cGy of total 5500 cGy. Vitals/Pain Level: BP 151/60 | Pulse 62 | Temp 36.8 C (98.2 F) (Oral) | Resp 16 | W t 66.2 kg (146 lb) | SpO2 99% Comment: room air Pain Score: Wt Readings from Last 3 Encounters: 02/24/19 66.2 kg (146 lb) 02/16/19 67.2 kg (148 lb 1.6 oz) No results for input(s): WBC, HB, HCT, PLT, BUN, CR, NA, K, MG in the last 720 hours. documented in this en counter Plan of Treatment Not on filedocumented as of this encounter Visit Diagnoses + + | Diagnosis | + + | Encounter for radiotherapy - Primary Radiotherapy | + + documented in this encounter"
--- OUTSIDE RECORDS SUMMARY | ~2020-04-16 | XMS | Encounter Summary ---
Demographics + + + | Address | [address] | | | [place] [address] | + + + | Home Phone | | + + + | Preferred Language | Unknown | + + + | Marital Status | | + + + | Episcopalian Affiliation | 1026 | + + + | Race | White | + + + | Ethnic Group | Not or | + + + Author + + + | Author | [facility] | | | and [place] | + + + | Organization | [facility] | | | [...] [place] | | | | | [address] | | + + + + + | Jag Iniguez | ECON | Unknown | | + + + + + Care Team Providers + +------+ + | Care Welfare Director Name | Role | Phone | [...] | | | | YFN RAMSEY | [place] [address] | | | | | [place] [address] | | | | | | [phone] | | | +--------+ + + + [...] CT CHEST WO CONTRAST | Routin | 10/10/2015 | | Results for this | | | e | 8:45 AM | | procedure are in the | | | | PDT | | results section. | + +--------+ + + + documented in this encounter Results CT Chest wo Contrast (10/10/2015 8:45 AM PDT) + + | Specimen | [...]
--- OUTSIDE RECORDS SUMMARY | ~2020-04-16 | XMS | Encounter Summary ---
Demographics + + + | Address | [address] | | | [place] [address] | + + + | Home Phone | | + + + | Preferred Language | Unknown | + + + | Marital Status | Single | + + + | Yazidi Affiliation | Unknown | + + + | Race | White | + + + | Ethnic Group | Not or | + + + Author + + + | Author | [facility] | + + + | Organization | [facility] | + + + | Address | Unknown | + + + | Phone | Unavailable | + + + Support + + +---------+ + | Name | Relationship | Address | Phone | + + +---------+ + | Lesia Iniguez | ECON | Unknown | | + + +---------+ + Care Team Providers + +------+ + | Care Lap Checker Name | Role | Phone | + +------+ + | No Pcp Per Patient | PCP | Unavailable | + +------+ + Encounter Details +--------+ + + + + | Date | Type | Department | Care Team | Description | +--------+ + + + + | 02/26/ | Hospital | Radiation Oncology | | | | 2019 | Encounter | at [facility] [address] | | | | | | [address] | | | | | | [address] | | | | | | [place], [place] | | | | | | [address] | | | | | | [phone] | | | +--------+ + + + [...]
--- OUTSIDE RECORDS SUMMARY | ~2020-04-16 | XMS | Encounter Summary ---
Demographics + + + | Address | [address] | | | [place] [address] | + + + | Home Phone | | + + + | Preferred Language | Unknown | + + + | Marital Status | Single | + + + | Shinto Affiliation | Unknown | + + + [...] Team Providers + +------+ + | Care Desk Director Name | Role | Phone | + +------+ + | No Pcp Per Patient | PCP | Unavailable | + +------+ + Encounter Details +--------+--------+ + + + | Date | Type | Department | Care Team | Description | +--------+--------+ + + + | 03/06/ | Travel | | | | | [...]
--- OUTSIDE RECORDS SUMMARY | ~2020-04-16 | XMS | Encounter Summary ---
Demographics + + + | Address | [address] | | | [place] [address] | + + + | Home Phone | | + + + | Preferred Language | Unknown | + + + | Marital Status | Single | + + + | Sabianism Affiliation | Unknown | + + + | Race | White | + + + | Ethnic Group | Not or | + + + Author + + + | Author | [facility] | + + + | Organization | [facility] | + + + | Address | Unknown | + + + | Phone | Unavailable | + + + Support + + +---------+ + | Name | Relationship | Address | Phone | + + +---------+ + | Lesia Iniguez | ECON | Unknown | | + + +---------+ + Care Team Providers + +------+ + | Care Coal Briquette Machine Operator Name | Role | Phone | + +------+ + | No Pcp Per Patient | PCP | Unavailable | + +------+ + Reason for Visit + + + | Reason | Comments | + + + | Follow-up visit | | + + + Intake Referral (Routine) +--------+--------+ + + + + | Status | Reason | Specialty | Diagnoses / | Referred By | Referred To | | | | | Procedures | Contact | Contact | +--------+--------+ + + + + | Closed | | Radiation | Diagnoses | Quintin, | [facility] | | | | Oncology | Malignant | Garfield Garcia MD | Medicine [facility] | | | | | neoplasm of | [place] | [address] | | | | | upper lobe, | [facility] | [address] | | | | | left | C[address] | [place] | | | | | bronchus or | [address] | [address], [address] | | | | | lung | [facility] | floor | | | | | | [address] | [place], [place] | | | | | | [place], | [address] | | | | | | [place] [address] | Phone: | | | | | | Phone: | [phone] | | | | | | [phone] | Fax: | | | | | | Fax: | [phone] | | | | | | [phone] | | +--------+--------+ + + + + Encounter Details +--------+---------+ + + + | Date | Type | Department | Care Team | Description | +--------+---------+ + + + | 07/01/ | Office | Radiation Oncology | Alexander Chapa MD | Malignant neoplasm | | 2019 | Visit | at [facility] [address] | [address] | of upper lobe of | | | | [address] | [address] [place], | left lung (HCC) | | | | [address], [address] floor | [place] [address] | (Primary Dx) | | | | [place], [place] | [phone] | | | | | [address] | | | | | | [phone] | | | +--------+---------+ + + + [...] + + + | Blood Pressure | 158/71 | 07/01/2019 12:41 PM | | | | | PST | | + + + + + | Pulse | 52 | 07/01/2019 12:41 PM | | | | | PST | | + + + + + | Temperature | 36.7 C (98.1 F) | 07/01/2019 12:41 PM | | | | | PST | | + + + + + | Respiratory Rate | 12 | 07/01/2019 12:41 PM | | | | | PST | | + + + + + | Oxygen Saturation | 97% | 07/01/2019 12:41 PM | | | | | PST | | + + + + + | Inhaled Oxygen | - | - | | | Concentration | | | | + + + + + | Weight | 70.2 kg (154 lb 12.8 | 07/01/2019 12:41 PM | | | | oz) | PST | | + + + + + | Height | - | - | | + + + + + | Body Mass Index | - | - | | + + + + + documented in this encounter Patient Instructions Patient Instructions Alexander Chapa MD - 07/01/2019 1:00 PM PSTGo do the chest CT now Then go home We'll call you with the results Then the next scan will be in December and then followup here in 6 months then follow up [facility] documented in this encounter Progress Notes Chang Wood MD - 07/01/2019 1:00 PM PSTCT chest completed today at [facility] - 07/01/19 Report listed below Alexander Cooper MD - 2018 1:00 PM [facility]Mr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 He is doing well Very mild chest wall tenderness No shortness of breath BP 158/71 (BP Location: Right upper arm, Patient Position: Sitting) | Pulse 52 | Temp 36. 7 C (98.1 F) (Oral) | Resp 12 | Wt 70.2 kg (154 lb 12.8 oz) | SpO2 97% No cervical No SCV nodes Very mild tenderness of the chest +wheezing bilaterally A/P: Doing well after SBRT He tolerated this well Let's do a chest CT today ayt the [facility] I'll call him with the results Then FUP switches back to [facility] with new chest CT and follow up in December 2019 Dr. 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
--- OUTSIDE RECORDS SUMMARY | ~2020-04-16 | XMS | Encounter Summary ---
Demographics + + + | Address | [address] | | | [place] [address] | + + + | Home Phone | | + + + | Preferred Language | Unknown | + + + | Marital Status | | + + + | Uatsdin Affiliation | 1026 | + + + | Race | White | + + + | Ethnic Group | Not or | + + + Author + + + | Author | [facility] | | | and [place] | + + + | Organization | [facility] | | | [...] [place] | | | | | [address] | | + + + + + | Jag Iniguez | ECON | Unknown | | + + + + + Care Team Providers + +------+ + | Care New Vehicle Sales Consultant Name | Role | Phone | + [...] | | | | [address] | [place] [address] | | | | | [place] [address] | | | | | | [phone] | | | +--------+ + + + [...] + +--------+ + + + | CT ABDOMEN PELVIS W | Routin | 04/16/2017 | | Results for this | | WO CONTRAST | e | 11:00 AM | | procedure are in the | | | | PDT | | results section. | + +--------+ + + + documented in this encounter Results CT Abdomen Pelvis w wo Contrast (04/16/2017 11:00 AM PDT) + + | Specimen [...]
--- OUTSIDE RECORDS SUMMARY | ~2020-04-16 | XMS | Encounter Summary ---
Demographics + + + | Address | [address] | | | [place] [address] | + + + | Home Phone | | + + + | Preferred Language | Unknown | + + + | Marital Status | Single | + + + | Rastafarian Affiliation | Unknown | + + + | Race | White | + + + | Ethnic Group | Not or | + + + Author + + + | Author | [facility] | + + + | Organization | [facility] | + + + | Address | Unknown | + + + | Phone | Unavailable | + + + Support + + +---------+ + | Name | Relationship | Address | Phone | + + +---------+ + | Lesia Iniguez | ECON | Unknown | | + + +---------+ + Care Team Providers + +------+ + | Care Steward/Stewardess Second Name | Role | Phone | + +------+ + | No Pcp Per Patient | PCP | Unavailable | + +------+ + Encounter Details +--------+ + + + + | Date | Type | Department | Care Team | Description | +--------+ + + + + | 02/16/ | Documentati | Radiation Oncology | Alexander Chapa MD | | | 2019 | on | at [facility] [address] [facility] [address] [facility] | | | | | [address] | [place], | | | | | [place], [address] [place] [address] | [place] [address] | | | | | [place], [place] | [phone] | | | | | [address] | | | | | | [phone] | | | +--------+ + + + [...] this encounter Miscellaneous Notes Telephone Encounter - Alexander Chapa MD - 02/16/2019 3:25 PM PDTRT Clinical Treatment Plan sandra Note Date: 02/16/2019 Clinical History: Yoni Iniguez is a 73 y.o. 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 We plan SBRT for this lesion Clinical treatment planning for radiation therapy includes interpretation of diagnostic lionel ts, ordering of additional tests to delineate the treatment volume and surrounding normal st ructures, consideration of treatment duration and daily dose, consideration of radiation mod ality and energy, determination of the number and size of treatment ports, planning of appro priate radiation treatment devices, correlation of physical examination findings with imagin g studies and other studies to delineate the precise location of the target and sequencing i n combination of radiation treatment with other cancer therapies. Special tests interpreted: [facility] Treatment Volume: PATRIA lung cancer Planned Total RT Dose: 11 Gy per fraction x 5 fractions Energy: 6x Beam Arrangement: SBRT VMAT Number of unique ports: SBRT VMAT Treatment Setup and Devices: Vac-Loc and rotation or arc therapy Dosimetry requested: SBRT Plan (because the irregular PTV is close to critical structures) Normal Tissue (DVH) Constraints: We have a single ITV measuring 25.7 mls This is expanded and trimmed to create PTV measuring 60.8 mls Please treat the PTV 11 Gy x 5 to 55 Gy Aim for a hotspot of 120-130% and place it in the ITV Please aim for a max dose at 2 m from the PTV (D2cm) <64% Normal constraints: cord max dose: 15 Gy cord + 5 mm <20 Gy Esophagus max dose< 18 Gy Airways max dose< 25 Gy Great Vessels max dose< 35 Gy Chest wall max dose< 58 Gy; V45 < 5 mls; V37 <17 mls; V30<30 mls Total Lung (Again please contour the lungs for us -thank you!) V20< 10%; V13.5 <20% V13.5<600 mls V12.5<900 mls IMRT: Yes IMRT will be required because of the PTV is concave and close to critcal structures. Special Factors: --Stereotactic Body Radiotherapy: Mr. Iniguez will be receiving Stereo tactic Body Radiation Therapy. The medical need is indicated in the treatment plan note. A s a result, additional time and effort will be devoted to contouring the tumor volumes and c ritical normal structures for the development of the treatment plan with the physics and dos imetry personnel to ensure that the critical structures in or near the treatment field are p rotected while optimally irradiating the tumor volume. This will include a careful review o f all the CT images in the plan for a complete 3-D analysis. The goal is to optimize the ca ncer treatment to preserve as much function as possible for Mr. Iniguez. Special Physics Consult: No Setup and Localization Orders: Verification Sim, CBCT daily before treatment Start SBRT 02/24 at 1710 PM Treat 02/24, 02/26, 03/02, 821 and 03/06 Circulating tumor DNA study Alexander Chapa MD documented in this enco unter Plan of Treatment Not on filedocumented as of this encounter Visit Diagnoses Not on filedocumented in this encounter"
--- OUTSIDE RECORDS SUMMARY | ~2020-04-16 | XMS | Encounter Summary ---
Demographics + + + | Address | [address] | | | [place] [address] | + + + | Home Phone | | + + + | Preferred Language | Unknown | + + + | Marital Status | Single | + + + | Gnosticist Affiliation | Unknown | + + + [...] Team Providers + +------+ + | Care Infectious Disease Technician Name | Role | Phone | + +------+ + | No Pcp Per Patient | PCP | Unavailable | + +------+ + Encounter Details +--------+--------+ + + + | Date | Type | Department | Care Team | Description | +--------+--------+ + + + | 03/04/ | Travel | | | | | [...]
--- OUTSIDE RECORDS SUMMARY | ~2020-04-16 | XMS | Encounter Summary ---
Demographics + + + | Address | [address] | | | [place] [address] | + + + | Home Phone | | + + + | Preferred Language | Unknown | + + + | Marital Status | Single | + + + | Buddhist Affiliation | Unknown | + + + [...] Team Providers + +------+ + | Care Density Control Puncher Name | Role | Phone | + +------+ + | No Pcp Per Patient | PCP | Unavailable | + +------+ + Encounter Details +--------+--------+ + + + | Date | Type | Department | Care Team | Description | +--------+--------+ + + + | 02/26/ | Travel | | | | | [...]
--- OUTSIDE RECORDS SUMMARY | ~2020-04-16 | XMS | Clinical Summary ---
Demographics + + + | Address | [address] | | | [place] [address] | + + + | Home Phone | | + + + | Preferred Language | Unknown | + + + | Marital Status | | + + + | Yarsanism Affiliation | 1026 | + + + | Race | White | + + + | Ethnic Group | Not or | + + + Author + + + | Author | [facility] | | | and [place] | + + + | Organization | [facility] | | | [...] [address] | | | [place] | | [place] | | | | | [address] | | + + + + + | Jag Iniguez | ECON | Unknown | | + + + + + Care Team Providers + +------+ + | Care Head Waiter Name | Role | Phone | + +------+ + | Skyla Depmsey | PCP | | + +------+ + Allergies Not on File Medications Not on file Active Problems Not on file Social History + +-------+ +--------+------+ | Tobacco [...] on file | | + + + Last Filed Vital Signs Not on file Plan of Treatment + + + + + | Health Maintenance | Due Date | Last | Comments | | | | Done | | + + + + + | Hepatitis C | | | | | Screening | 5 | | | + + + + + | Vaccine: | | | | | Dtap/Tdap/Td (1 - | 4 | | | | Tdap) | | | | + + + + + | Colorectal Cancer | | | | | Screening | 5 | | | | (Colonoscopy) | | | | + + + + + | Vaccine: Zoster (1 | | | | | of 2) | 5 | | | + + + + + | Vaccine: | | | | | Pneumococcal 65+ (1 | 0 | | | | of 1 - PPSV23) | | | | + + + + + | Adult Annual | | | | | Wellness Visit | 0 | | | + + + + + | Vaccine: Influenza | | | | | (#1) | 0 | | | + + + + + | AAA Screening | Completed | 12/03/19 | | | | | 18, | | | | | 04/16/20 | | | | | 17, | | | | | 01/31/20 | | | | | 13 | | + + + + + Results Not on filefrom Last 3 Months Insurance + +--------+ +--------+ +---------+--------+ | Payer | Benefi | Subscriber | Effect | Phone | Address | Type | | | t Plan | ID | gerard | | | | | | / | | Dates | | | | | | Group | | | | | | + +--------+ +--------+ +---------+--------+ | [employer] | [place] | [id number] | | | | Indemn | | | NS | | 019-Pr | | | ity | | | ADMIN | | esent | | | | | | [place] | | | | | | | | [place] | | | | | | + +--------+ +--------+ +---------+--------+ | [employer] | [place] | [id number] | | | | Indemn | | | COMMUN | | 019-Pr | | | ity | | | ITY | | esent | | | | | | CARE | | | | | | + +--------+ +--------+ +---------+--------+ | MEDICARE | MEDICA | [id number] | 11/13/19 | [phone] | | Medica | | | RE | | 10-Pre | 5 | | re | | | PART A | | sent | | | | | | AND B | | | | | | + +--------+ +--------+ +---------+--------+ + +--------+ +--------+ + + | Guarantor Name | Accoun | Relation to | Date | Phone | Billing Address | | | t Type | Patient | of | | | | | | | | | | + +--------+ +--------+ + + | Yoni Iniguez | Person | Self [birth year] | | | al/Fam | | 1946 | [phone] | [place] [address] | | | tamia | | | 3 (Home) | | + +--------+ +--------+ + + Advance Directives + + + + + | Type | Date Recorded | Patient | Explanation | | | | Labor Trainer | | + + + + + | Power of | | | | | Solar Manager | | | | + + + + + | Advance | 11/27/2018 10:03 | | | | Directive | AM | | | + + + + +"
--- OUTSIDE RECORDS SUMMARY | ~2020-04-16 | XMS | Encounter Summary ---
Demographics + + + | Address | [address] | | | [place] [address] | + + + | Home Phone | | + + + | Preferred Language | Unknown | + + + | Marital Status | Single | + + + | Yazidism Affiliation | Unknown | + + + [...] Team Providers + +------+ + | Care Associate Scientist Name | Role | Phone | + [...] | | | | neoplasm of | [place] | [address] | | | | | upper lobe, | [facility] | [address] | | | | | left | CENTER [address] | [place] | | | | | bronchus or | [address] | [address] | | | | | lung | [facility] | floor | | | | | | [address] | [place], [place] | | | | | | [place], | [address] | | | | | | [place] [address] | Phone: | | | | | | Phone: | [phone] | | | | | | [phone] | Fax: | | | | | | Fax: | [phone] | | | | | | [phone] | | +--------+--------+ + + + + Encounter Details +--------+ + + + + | Date | Type | Department | Care Team | Description | +--------+ + + + + | 02/24/ | Hospital | Radiation Oncology | | | | 2019 | Encounter | at [facility] [address] | | | | | | [address] | | | | | | [address] | | | | | | [place], [place] | | | | | | [address] | | | | | | [phone] | | | +--------+ + + + [...]
--- OUTSIDE RECORDS SUMMARY | ~2020-04-16 | XMS | Encounter Summary ---
Demographics + + + | Address | [address] | | | [place] [address] | + + + | Home Phone | | + + + | Preferred Language | Unknown | + + + | Marital Status | Single | + + + | Alevism Affiliation | Unknown | + + + | Race | White | + + + | Ethnic Group | Not or | + + + Author + + + | Author | [facility] | + + + | Organization | [facility] | + + + | Address | Unknown | + + + | Phone | Unavailable | + + + Support + + +---------+ + | Name | Relationship | Address | Phone | + + +---------+ + | Lesia Iniguez | ECON | Unknown | | + + +---------+ + Care Team Providers + +------+ + | Care Claims Attorney Name | Role | Phone | + [...] | | | | neoplasm of | [place] | [address] | | | | | upper lobe, | [facility] | [address] | | | | | left | C[address] | [place] | | | | | bronchus or | [address] | [address] | | | | | lung | [facility] | floor | | | | | | [address] | [place], [place] | | | | | | [place], | [address] | | | | | | [place] [address] | Phone: | | | | | | Phone: | [phone] | | | | | | [phone] | Fax: | | | | | | Fax: | [phone] | | | | | | [phone] | | +--------+--------+ + + + + Encounter Details +--------+ + + + + | Date | Type | Department | Care Team | Description | +--------+ + + + + | 03/06/ | Hospital | Radiation Oncology | | | | 2019 | Encounter | at [facility] [address] | | | | | | [address] | | | | | | [address] | | | | | | [place], [place] | | | | | | [address] | | | | | | [phone] | | | +--------+ + + + [...]
--- OUTSIDE RECORDS SUMMARY | ~2020-04-16 | XMS | Encounter Summary ---
Demographics + + + | Address | [address] | | | [place] [address] | + + + | Home Phone | | + + + | Preferred Language | Unknown | + + + | Marital Status | Single | + + + | Adventist Affiliation | Unknown | + + + [...] Team Providers + +------+ + | Care Bladder Changer Name | Role | Phone | + +------+ + | No Pcp Per Patient | PCP | Unavailable | + +------+ + Reason for Visit + +--------+ + | Reason | Onset | Comments | | | Date | | + +--------+ + | Teaching | 02/12/ | 24 hour call back post moh's | | | 2012 | | + +--------+ + Encounter Details +--------+ + + + + | Date | Type | Department | Care Team | Description | +--------+ + + + + | 02/12/ | Telephone | Dermatology | Aide Linares MD | Teaching (24 hour | | 2012 | | Surgery at [facility] [address] | [address] | call back post | | | | [address] | [place], [place] | [facility]) | | | | for Health and | [address] | | | | | [facility], [facility] [address], | [phone] | | | | | [address] [place] [address] | | | | | | [place], [place] | | | | | | [address] | | | | | | [phone] | | | +--------+ + + + [...] this encounter Miscellaneous Notes Telephone Encounter - Palma Garza - 02/12/2013 4:36 PM PDTCalled pt to check status po st moh' s pt did not answer so I LVM for pt to call back if he had any questions or concerns documented in this encount er Plan of Treatment Not on filedocumented as of this encounter Visit Diagnoses Not on filedocumented in this encounter"
--- OUTSIDE RECORDS SUMMARY | ~2020-04-16 | XMS | Encounter Summary ---
Demographics + + + | Address | [address] | | | [place] [address] | + + + | Home Phone [...] Author + + + | Author | [facility] | + + + | Organization | [facility] | + + + | Address | Unknown | + + + | Phone | Unavailable | + + + Support + + +---------+ + | Name | Relationship | Address | Phone | + + +---------+ + | Lesia Iniguez | ECON | Unknown | | + + +---------+ + Care Team Providers + +------+ + | Care Ambulance Driver Name | Role | Phone | + +------+ + | No Pcp Per Patient | PCP | Unavailable | + +------+ + Reason for Visit + + + | Reason | Comments | + + + | Teaching session | | | with patient | | + + + Encounter Details +--------+ + + + + | Date | Type | Department | Care Team | Description | +--------+ + + + + | 02/16/ | Clinical | Radiation Oncology | Simon Albert [address] | Teaching session | | 2019 | Support | at [facility] [address] | [facility] | with patient | | | Staff | [address] | [place], [place] | | | | | [address], [address] [facility] floor | [address] | | | | | [place], [place] | | | | | | [address] | | | | | | [phone] | | | +--------+ + + + [...] + + documented as of this encounter Progress Notes CornelioMandofelipelalit, RN - 02/16/2019 3:30 PM PDTNursing Note: Met with Yoni Iniguez today to give site specific radiation treatment education. Liya jauregui is alert, oriented, and ambulatory with stable gait, and is alone. The patient lives in [place], [place] but is staying locally and plans on driving to daily radiation treatments. Douglas banda brochure of supportive services with patient. Patient did not express interest in services at this time. Referral to was not placed. The patient is here to begin radiation treatment to the [facility] and has verified this is the co rrect location of the treatment. Patient oriented to clinic, treatment routine, projected length of treatment (5 fractions), and the schedule for weekly physician visits. A site specific radiation therapy information al packet was given and possible side effects were reviewed. Patient was encouraged to utili ze Calendula cream on the external skin of treatment area(s) 2-3 times per day: 4 or more ho urs prior to treatment, immediately post treatment, and prior to bedtime. Patient verbalized understanding of information discussed. Patient is not receiving chemotherapy concurrently. 10 minutes was spent in face to face discussion and teaching with the patient during this e ncounter. Refer to Patient Education Report for additional documentation. documented in this e ncounter Plan of Treatment Not on filedocumented as of this encounter Visit Diagnoses + + | Diagnosis | + + | Encounter for radiotherapy - Primary Radiotherapy | + + documented in this encounter"
--- OUTSIDE RECORDS SUMMARY | ~2020-04-16 | XMS | Encounter Summary ---
Demographics + + + | Address | [address] | | | [place] [address] | + + + | Home Phone | | + + + | Preferred Language | Unknown | + + + | Marital Status | Single | + + + | Baptism Affiliation | Unknown | + + + | Race | White | + + + | Ethnic Group | Not or | + + + Author + + + | Author | [facility] | + + + | Organization | [facility] | + + + | Address | Unknown | + + + | Phone | Unavailable | + + + Support + + +---------+ + | Name | Relationship | Address | Phone | + + +---------+ + | Lesia Iniguez | ECON | Unknown | | + + +---------+ + Care Team Providers + +------+ + | Care Telephone Lineworker Name | Role | Phone | + [...] | | | | neoplasm of | [place] [facility] | [address] | | | | | upper lobe, | [facility] | [address] | | | | | left | [address] | [place] | | | | | bronchus or | [address] | [address] | | | | | lung | [facility] | floor | | | | | | [address] | [place], [place] | | | | | | [place], | [address] | | | | | | [place] [address] | Phone: | | | | | | Phone: | [phone] | | | | | | [phone] | Fax: | | | | | | Fax: | [phone] | | | | | | [phone] | | +--------+--------+ + + + + Encounter Details +--------+ + + + + | Date | Type | Department | Care Team | Description | +--------+ + + + + | 03/02/ | Hospital | Radiation Oncology | | | | 2019 | Encounter | at [facility] [address] | | | | | | [address] | | | | | | [address] | | | | | | [place], [place] | | | | | | [address] | | | | | | [phone] | | | +--------+ + + + [...]
--- OUTSIDE RECORDS SUMMARY | ~2020-04-16 | XMS | Encounter Summary ---
Demographics + + + | Address | [address] | | | [place] [address] | + + + | Home Phone | | + + + | Preferred Language | Unknown | + + + | Marital Status | | + + + | Adventist Affiliation | 1026 | + + + | Race | White | + + + | Ethnic Group | Not or | + + + Author + + + | Author | [facility] | | | and [place] | + + + | Organization | [facility] | | | and [...] [place] | | | | | [address] | | + + + + + | Jag Iniguez | ECON | Unknown | | + + + + + Care Team Providers + +------+ + | Care Batch Tank Controller Name | Role | Phone | [...] | | | | YFN RAMSEY | [place] [address] | | | | | [place] [address] | | | | | | [phone] | | | +--------+ + + + [...] CT ABDOMEN PELVIS W | Routin | 12/02/2017 | | Results for this | | WO CONTRAST | e | 11:00 AM | | procedure are in the | | | | PDT | | results section. | + +--------+ + + + documented in this encounter Results CT Abdomen Pelvis w wo Contrast (12/02/2017 11:00 AM PDT) + + | Specimen [...]
--- OUTSIDE RECORDS SUMMARY | ~2020-04-16 | XMS | Encounter Summary ---
Demographics + + + | Address | [address] | | | [place] [address] | + + + | Home Phone | | + + + | Preferred Language | Unknown | + + + | Marital Status | | + + + | Orthodoxy Affiliation | 1026 | + + + | Race | White | + + + | Ethnic Group | Not or | + + + Author + + + | Author | [facility] | | | and [...] [place] | | | | | [address] | | + + + + + | Jag Iniguez | ECON | Unknown | | + + + + + Care Team Providers + +------+ + | Care Grounds Restoration Specialist Name | Role | Phone | + +------+ + | Skyla Dempsey | PCP | | + +------+ + Encounter Details +--------+ + + + + | Date | Type | Department | Care Team | Description | +--------+ + + + + | 12/02/ | Imaging | [facility] | Provider, | | | 2019 | Exam | [facility] | MD [address] | | | | | IMAGING [address] | | | | | [address] | [place] [address] | | | | | [facility] [address] | | | | | | [phone] | | | +--------+ + + + [...] CT SKULL BASE TO | Routin | 11/03/2018 | | Results for this | | MID THIGH | e | 9:35 AM | | procedure are in the | | | | PDT | | results section. | + +--------+ + + + documented in this encounter Results PET CT Skull Base To Mid Thigh (11/03/2018 9:35 AM PDT) + + | Specimen | [...]
--- OUTSIDE RECORDS SUMMARY | ~2020-04-16 | XMS | Encounter Summary ---
Demographics + + + | Address | [address] | | | [place] [address] | + + + | Home Phone | | + + + | Preferred Language | Unknown | + + + | Marital Status | | + + + | Roman Catholic Affiliation | 1026 | + + + | Race | White | + + + | Ethnic Group | Not or | + + + Author + + + | Author | [facility] | | | and [place] | + + + | Organization | [facility] | | | and [...] [place] | | | | | [address] | | + + + + + | Jag Iniguez | ECON | Unknown | | + + + + + Care Team Providers + +------+ + | Care Cut Out Press Operator Name | Role | Phone | [...] | | | | YFN RAMSEY | [place] [address] | | | | | [place] [address] | | | | | | [phone] | | | +--------+ + + + [...] CT CHEST WO CONTRAST | Routin | 04/08/2018 | | Results for this | | | e | 11:10 AM | | procedure are in the | | | | PDT | | results section. | + +--------+ + + + documented in this encounter Results CT Chest wo Contrast (04/08/2018 11:10 AM PDT) + + | Specimen | [...]
--- OUTSIDE RECORDS SUMMARY | ~2020-04-16 | XMS | Clinical Summary ---
Demographics + + + | Address | [address] | | | [place] [address] | + + + | Home Phone | | + + + | Preferred Language | Unknown | + + + | Marital Status | Single | + + + | Adventism Affiliation | Unknown | + + + | Race | White | + + + | Ethnic Group | Not or | + + + Author + + + | Author | [facility] | + + + | Organization | [facility] | + + + | Address | Unknown | + + + | Phone | Unavailable | + + + Support + + +---------+ + | Name | Relationship | Address | Phone | + + +---------+ + | Lesia Iniguez | ECON | Unknown | | + + +---------+ + Care Team Providers + +------+ + | Care Mechanic Driver Name | Role | Phone | + +------+ + | No Pcp Per Patient | PCP | Unavailable | + +------+ + Source Comments CLIFF is fully live on both [facility] and [facility] Allergies + + + + + + | Active Allergy | Reactions | Severity | Noted | Comments | | | | | Date | | + + + + + + | Cephalexin | Dyspepsia, Mental | High | 02/17/20 | | | | Status Change | | 19 | | + + + + + + | Sulfa (Sulfonamide | Anaphylaxis | High | 02/12/20 | | | Antibiotics) | | | 13 | | + + + + + + Medications + + + +---------+------+------+-------+ | Medication | Sig | Dispensed | Refills | Star | End | Statu | | | | | | t | Date | s | | | | | | Date | | | + + + +---------+------+------+-------+ | | Take 1 Tab by mouth | | 0 | | | Activ | | HYDROcodone-acetamin | every four hours as | | | | | e | | ophen 5-325 mg Oral | needed. Not to | | | | | | | tablet [...] hour period.) | | | | | | + + + +---------+------+------+-------+ | omeprazole 10 mg | Take 10 mg by mouth | | 0 | | | Activ | | Oral capsule,delayed | once daily. | | | | | e | | release(/EC) | | | | | | | + + + +---------+------+------+-------+ | aspirin EC 81 mg | Take 81 mg by mouth | | 0 | | | Activ | | Oral tablet,delayed | once daily. | | | | | e | | release (DR/EC) | | | | | | | + + + +---------+------+------+-------+ | metoprolol | Take by mouth two | | 0 | | | Activ | | tartrate 10 mg/mL | times daily. | | | | | e | | Oral Suspension | | | | | | | + + + +---------+------+------+-------+ | folic acid 1 mg | Take 1 mg by mouth | | 0 | | | Activ | | Oral tablet | once daily. | | | | | e | + + + +---------+------+------+-------+ | finasteride 1 mg | Take 1 mg by mouth | | 0 | | | Activ | | Oral tablet | once daily. | | | | | e | + + + +---------+------+------+-------+ | docusate sodium | Take 100 mg by mouth | | 0 | | | Activ | | (STOOL SOFTENER) 100 | two times daily. | | | | | e | | mg Oral capsule | | | | | | | + + + +---------+------+------+-------+ | clindamycin 300 mg | Take 1 Cap by mouth | 1 Cap | 0 | 07/3 | | Activ | | Oral capsule | every eight hours. | | | 1/20 | | e | | | | | | 13 | | | + + + +---------+------+------+-------+ | cephALEXin | Take 1 Cap by mouth | 30 Cap | 0 | 07/3 | | Activ | | (KEFLEX) 500 mg Oral | three times daily. | | | 1/20 | | e | | capsule | | | | 13 | | | + + + +---------+------+------+-------+ | magnesium oxide | Take 250 mg by mouth | | 0 | | | Activ | | 250 mg oral tablet | once daily. | | | | | e | + + + +---------+------+------+-------+ | ascorbic acid | Take 100 mg by mouth | | 0 | | | Activ | | (vitamin C) 100 mg | three times daily. | | | | | e | | oral tablet | | | | | | | + + + +---------+------+------+-------+ | cholecalciferol | Take 1,000 Units by | | 0 | | | Activ | | (Vitamin D3) | mouth once daily. | | | | | e | | (VITAMIN D3) 1,000 | | | | | | | | unit oral capsule | | | | | | | + + + +---------+------+------+-------+ | multivitamin oral | Take 1 tablet by | | 0 | | | Activ | | tablet | mouth once daily. | | | | | e | + + + +---------+------+------+-------+ Active Problems + + + | Problem | Noted Date | + + + | Skin cancer | | + + + Family History + + +------+ + | Medical History | Relation | Name | Comments | + + +------+ + | Diabetes | Brother | | | + + +------+ + | Additional Family | Brother | | diabetes | | History | | | | + + +------+ + | Non-contributory | Father | | alchol poisoning | + + +------+ + + +------+--------+ + | Relation | Name | Status | Comments | + +------+--------+ + | Brother | | | | + +------+--------+ + | Brother | | | | + +------+--------+ + | Father | | | | + +------+--------+ + Social History + + + +--------+ [...] + + + Last Filed Vital Signs + + + [...] | | + + + + + Plan of Treatment + + +-------+ + | Health Maintenance | Due Date | Last | Comments | | | | Done | | + + +-------+ + | Pneumococcal | | | | | vaccination (1 of 1 | 0 | | | | - PPSV23) | | | | + + +-------+ + | Influenza (Flu) | | | | | vaccination (#1) | 0 | | | + + +-------+ + Results Not on filefrom Last 3 Months"
--- OUTSIDE RECORDS SUMMARY | ~2020-04-16 | XMS | Encounter Summary ---
Demographics + + + | Address | [address] | | | [place] [address] | + + + | Home Phone | | + + + | Preferred Language | Unknown | + + + | Marital Status | Single | + + + | Caodaism Affiliation | Unknown | + + + | Race | White | + + + | Ethnic Group | Not or | + + + Author + + + | Author | [facility] | + + + | Organization | [facility] | + + + | Address | Unknown | + + + | Phone | Unavailable | + + + Support + + +---------+ + | Name | Relationship | Address | Phone | + + +---------+ + | Lesia Iniguez | ECON | Unknown | | + + +---------+ + Care Team Providers + +------+ + | Care Brush Operator Name | Role | Phone | + +------+ + | No Pcp Per Patient | PCP | Unavailable | + +------+ + Reason for Visit + +--------+ + | Reason | Onset | Comments | | | Date | | + +--------+ + | RT Plan Review Note | 02/18/ | | | | 2019 | | + +--------+ + Encounter Details +--------+ + + + + | Date | Type | Department | Care Team | Description | +--------+ + + + + | 02/18/ | Documentati | Radiation Oncology | Alexander Chapa MD | RT Plan Review Note | | 2019 | on | at [facility] [address] [facility] [address] [facility] | | | | | [address] | [place] [facility], | | | | | [address], [address] floor | [place] [address] | | | | | [place], [place] | [phone] | | | | | [address] | | | | | | [phone] | | | +--------+ + + + [...] Telephone Encounter - Alexander Chapa MD - 02/18/2019 3:54 PM PDTRadiotherapy Plan Review N marlo Review Date: 02/18/2019 Clinical History: Yoni Iniguez is a 73 y.o. 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 Type of Plan: SBRT VMAT Rationale: Initial Plan Treatment volume: PATRIA lung Planned Total RT Dose: 11 Gy per fraction x 5 fractions Energy: 6xFFF Beam Arrangement: VMAT Number of unique ports: VMAT Two partial arcs Clockwise 340 to 180 degrees then back to 340 Isodose Line: 100% covers 95% of the PTV Treatment Setup and Devices: Vac-Loc Critical Structures: Cord max dose: 1483 cGy Cord + 5 mm: 1630 cGy Esophagus max dose: 1810 cGy Airways max dose: 1549 cGy Great Vessels max dose: 3776 cGy; V30 0.3 mls Chest wall max dose: 6015 cGy; V45 9 mls; V37 24 mls; V30 43 mls Total Lung mean dose: 340 cGy; V20 6%; V13.5 8% V13.5 455 mls V12.5 472 mls Max dose: 6947 cGy (126%) in the ITV He is scheduled to start this SBRT Saturday 02/24 We will treat 02/24, 02/26, 03/02, 03/04 and 03/06 Alexander Chapa MD documented in this enco unter Plan of Treatment Not on filedocumented as of this encounter Visit Diagnoses Not on filedocumented in this encounter"
--- OUTSIDE RECORDS SUMMARY | ~2020-04-16 | XMS | Encounter Summary ---
Demographics + + + | Address | [address] | | | [place] [address] | + + + | Home Phone | | + + + | Preferred Language | Unknown | + + + | Marital Status | Single | + + + | Rastafari Affiliation | Unknown | + + + | Race | White | + + + | Ethnic Group | Not or | + + + Author + + + | Author | [facility] | + + + | Organization | [facility] | + + + | Address | Unknown | + + + | Phone | Unavailable | + + + Support + + +---------+ + | Name | Relationship | Address | Phone | + + +---------+ + | Lesia Iniguez | ECON | Unknown | | + + +---------+ + Care Team Providers + +------+ + | Care Trolley Worker Name | Role | Phone | + +------+ + | No Pcp Per Patient | PCP | Unavailable | + +------+ + Reason for Visit + +--------+ + | Reason | Onset | Comments | | | Date | | + +--------+ + | RT Simulation Note | 02/16/ | | | | 2019 | | + +--------+ + Encounter Details +--------+ + + + + | Date | Type | Department | Care Team | Description | +--------+ + + + + | 02/16/ | Documentati | Radiation Oncology | Alexander Chapa MD | RT Simulation Note | | 2019 | on | at [facility] [address] [facility] | | | | | [address] | [place] [facility], | | | | | [address], [address] floor | [place] [address] | | | | | [place], [place] | [phone] | | | | | [address] | | | | | | [phone] | | | +--------+ + + + [...] Encounter - Alexander Chapa MD - 02/16/2019 3:20 PM PDTRT Simulation Documentatio n Note Date simulated: 02/16/2019 Reason: Initial simulation Clinical History: Yoni Iniguez is a 73 y.o. 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 Treatment Devices: vac-loc, wing board and active breathing control (ABC). Contrast used: none. Procedure description: Yoni Iniguez was brought into the simulation room and placed in the supine, arms up position on the table. He was able to attain and maintain stable treatm ent position on the table without difficulty. Cartoon Designer and axial images were obtained. I set a pproximate field borders to encompass the thorax and the patient underwent 4DCT scanning. T he patient was marked. The patient tolerated the procedure well, and we will proceed with r adiation treatment planning and field-shape confirmation simulation. Please refer to the RT Clinical Treatment Plan for additional treatment planning details. Level of Complexity: Vac-Loc Critical Structures: cord, lung, esophagus, heart and chest wall/rib Unique patient treatment issues or concerns: SBRT I was personally present for the simulation and verified the setup. Alexander Chapa MD documented in this enco unter Plan of Treatment Not on filedocumented as of this encounter Visit Diagnoses Not on filedocumented in this encounter"
--- OUTSIDE RECORDS SUMMARY | ~2020-04-16 | XMS | Encounter Summary ---
Demographics + + + | Address | [address] | | | [place] [address] | + + + | Home Phone | | + + + | Preferred Language | Unknown | + + + | Marital Status | | + + + | Mandaeism Affiliation | 1026 | + + + | Race | White | + + + | Ethnic Group | Not or | + + + Author + + + | Author | [facility] | | | and [place] | + + + | Organization | [facility] | | | [...] [place] | | | | | [address] | | + + + + + | Jag Iniguez | ECON | Unknown | | + + + + + Care Team Providers + +------+ + | Care Precision Agriculture Technician Name | Role | Phone | [...] | | | | YFN RAMSEY | [place] [address] | | | | | [place] [address] | | | | | | [phone] | | | +--------+ + + + [...] CT CHEST WO CONTRAST | Routin | 09/29/2018 | | Results for this | | | e | 12:45 PM | | procedure are in the | | | | PDT | | results section. | + +--------+ + + + documented in this encounter Results CT Chest wo Contrast (09/29/2018 12:45 PM PDT) + + | Specimen | [...]
--- OUTSIDE RECORDS SUMMARY | ~2020-04-16 | XMS | Encounter Summary ---
Demographics + + + | Address | [address] | | | [place] [address] | + + + | Home Phone | | + + + | Preferred Language | Unknown | + + + | Marital Status | Single | + + + | Tenriism Affiliation | Unknown | + + + | Race | White | + + + | Ethnic Group | Not or | + + + Author + + + | Author | [facility] | + + + | Organization | [facility] | + + + | Address | Unknown | + + + | Phone | Unavailable | + + + Support + + +---------+ + | Name | Relationship | Address | Phone | + + +---------+ + | Lesia Iniguez | ECON | Unknown | | + + +---------+ + Care Team Providers + +------+ + | Care Manager Medical Name | Role | Phone | + [...] | | | | neoplasm of | [place] | [address] | | | | | upper lobe | A MEDICAL | [facility] | | | | | of left lung | CENTER [address] [place], | | | | | (HCC) | [address] | [place] | | | | | Procedures | [facility] | [address] | | | | | SIMULATION | [address] | Phone: | | | | | IMAGING | [place], | [phone] | | | | | | [place] [address] | Fax: | | | | | | Phone: | [phone] | | | | | | [phone] | | | | | | | Fax: | | | | | | | [phone] | | +--------+--------+ + + + + Reason for Visit + + + | Reason | Comments | + + + | Consultation | | + + + Intake Referral [...] Malignant | Garfield Garcia MD | Medicine [facility] | | | | | neoplasm of | [place] | [address] | | | | | upper lobe, | A MEDICAL | [address] | | | | | left | CENTER [address] | [address] | | | | | bronchus or | [address] | [address], [address] | | | | | lung | [facility] | floor | | | | | | [address] | [place], [place] | | | | | | [place], | [address] | | | | | | [place] [address] | Phone: | | | | | | Phone: | [phone] | | | | | | [phone] | Fax: | | | | | | Fax: | [phone] | | | | | | [phone] | | +--------+--------+ + + + + Encounter Details +--------+---------+ + + + | Date | Type | Department | Care Team | Description | +--------+---------+ + + + | 02/16/ | Office | Radiation Oncology | Alexander Chapa MD | Malignant neoplasm | | 2019 | Visit | at [facility] [address] | [address] | of upper lobe of | | | | [address] | [address] [place], | left lung (HCC) | | | | [place], [address] floor | [place] [address] | (Primary Dx) | | | | [place], [place] | [phone] | | | | | [address] | | | | | | [phone] | | | +--------+---------+ + + + [...] + + + | Blood Pressure | 147/66 | 02/16/2019 1:27 PM | | | | | PDT | | + + + + + | Pulse | 52 | 02/16/2019 1:27 PM | | | | | PDT | | + + + + + | Temperature | 36.5 C (97.7 F) | 02/16/2019 1:27 PM | | | | | PDT | | + + + + + | Respiratory Rate | 14 | 02/16/2019 1:27 PM | | | | | PDT | | + + + + + | Oxygen Saturation | 96% | 02/16/2019 1:27 PM | | | | | PDT | | + + + + + | Inhaled Oxygen | - | - | | | Concentration | | | | + + + + + | Weight | 67.2 kg (148 lb 1.6 | 02/16/2019 1:27 PM | | | | oz) | PDT | | + + + + + | Height | - | - | | + + + + + | Body Mass Index | - | - | | + + + + + documented in this encounter Progress Notes Alexander Chapa MD - 02/16/2019 1:30 PM PDTI saw and examined Mr. Yoni Iniguez with Dr. Zhang Myles. I agree with Dr. Myles's findings on examination and his treatment recommendations. Mr. 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 This tumor measures 2.1 cm x 1.2 cm. EBUS is negative. Mr. Iniguez is not felt to be a good candidate for surgical resection given his other me dical co-morbidities - especially pulmonary. I think he is a good candidate for stereotactic body radiotherapy (SBRT). We performed simulation with Vac-lock immobilization and 4D CT scan. We plan 11 Gy x 5 to 55 Gy starting next 02/24. We should finish our brief course the following 03/06. Mr. Iniguez may be a candidate for our circulating tumor DNA study and has expressed int erest in participating. Dr. Myles has placed a note into CPRS to communicate with [place] providers. JH Felicity Masterson MA - 1:30 PM PDTPt here for a consultation visit with Dr. Chapa regarding radiation t reatment options. Pt alert, oriented, and ambulatory with a steady gait. Pt oriented to clinic and reviewed the Introduction to the [facility] Radiation Oncology Departme nt pt information handout. Pt verbalizes understanding. 15 minutes was spent in face to face discussion and teaching with the patient. [facility] Pt Scheduling Last Four of SSN: [id number] Do you need transport assistance?: NO -- Do you need lodging assistance?: YES -- Will you have a caregiver lodging with you?: NO -- Do you have any functional limitations? NO -- Are you living independently? YES -- Is there any other pertinent information you would like to provide?: "NO" Zhang Marsh MD - 2018 1:30 PM PDT RADIATION ONCOLOGY CONSULTATION Requesting Physician: Garfield Ribeiro MD [id number] [place] [address] Identification/Chief Complaint: Yoni Iniguez is a 73 year old male with squamous cell c arcinoma in left upper lobe nodule but it was negative for all nodes from EBUS on February 06 019. HPI: This is a 73-year-old male who recently quit smoking about 7 weeks ago with hi story of 50-dpdc-yhnc smoking but has been using e-cigarette with asthma with COPD overlappi ng presenting with a with early stage lung cancer T1bN0M stage IA 2 primary lung cancer stat us post EBUS biopsy which turned out to be all nodes negative for malignancy who is here for consult for radiation. He has no prior hx of radiation. No pace maker in his heart. Brief Oncology Hx: November 03, 2018 PET official reports has focal metabolic activity within within the left parotid etiology u nclear recommend ENT evaluation. Left upper lobe lung nodule demonstrates increased metabol ic activity. Cannot exclude a malignant process. No convincing evidence of leopoldo or distal involvement. CT chest without contrast from February 05, 2019 Official report says "Interval increases in known anterior left upper lobe spiculated parti ally cavitated mass almost clinically certainly primary lung carcinoma without distant met" size is about "2.1 cm x 1.2 cm" February 05, 2019: Patient also had a PET positive parotid back in October status post negative f rom the biopsy results from parotid gland. The ultrasound evaluation of the parotid gland shows similar appearing lymph node in the in ferior aspect of the parotid gland bilaterally no suspicious masses are seen benign-appearin g lymph nodes in each parotid gland. February 06, 2019: EBUS biopsy showed left upper lobe lung EBUS guided fine-needle aspiration s howed squamous cell carcinoma however it was all negative for lymph nodes 7R are 4L 11 L He initially had an appointment with Dr. Hyde on January 30 but patient declined he stated t hat that they will not work today he is here to see Dr. Chapa. Per pulmonology's CPRS' not es he still working remains active can walk as far as he needs. He has had asthma as a kid l ots of allergic reactions but grew out of most of it. The patient is being seen today in consultation for consideration of radiotherapy treatment options. 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 Medications: Current Outpatient Medications Medication aspirin EC 81 mg Oral tablet,delayed release (DR/EC) cephALEXin (KEFLEX) 500 mg Oral capsule clindamycin 300 mg Oral capsule docusate sodium (STOOL SOFTENER) 100 mg Oral capsule finasteride 1 mg Oral tablet folic acid 1 mg Oral tablet HYDROcodone-acetaminophen 5-325 mg Oral tablet metoprolol tartrate 10 mg/mL Oral Suspension omeprazole 10 mg Oral capsule,delayed release(DR/EC) No current facility-administered medications for this visit. Allergies: Allergies Allergen Reactions Sulfa (Sulfonamide Antibiotics) Anaphylaxis Social History: Tobacco use: Social History Tobacco Use Smoking Status Current Every Day Smoker Packs/day: 4.00 Types: Cigars, Cigarettes Alcohol use: reports that he does not drink alcohol. Social History Social History Narrative Not on file Family History: Family History Problem Relation Non-contributory Father alchol poisoning Diabetes Brother Additional Family History Brother diabetes REVIEW OF SYSTEMS: The [facility] Radiation Oncology Questionnaire was completed by the patient a nd reviewed with the patient. Remainder of ROS is otherwise negative except as reported in H PI, PMH and PSH. PHYSICAL EXAM: General: NCAT, in no acute distress, breathing comfortably on room air ENT: No cervical LAD, no visible mucosal abnormalities Pulm: Unlabored breathing in RA CV: RRR, no MRG Abd: Non-distended Extremities: No distal extremity swelling LABORATORY: No results found for: NA, K, CL, BICARB, BUN, EGFRAFRICAN, EGFRNONAFR, CR, GLU, CA, ANIONGA P, ANIONALBCOR No results found for: WBC, HB, HCT, PLT, MCV, RDW IMAGING: CT chest without contrast from February 05, 2019 Official report says "Interval increases in known anterior left upper lobe spiculated parti ally cavitated mass almost clinically certainly primary lung carcinoma without distant met" size is about "2.1 cm x 1.2 cm" Whole body PET image from February 05, 2019 official report says left upper lobe lung nodule de monstrates unchanged metabolic activity since November 03, 2018. Still concerning for a malign ant process. Equivocal metabolic activity within the left level 2A cervical lymph node and within the left parotid. Recommend surveillance. PET Image from November 03, 2018 Official reports has focal metabolic activity within within the left parotid etiology uncle ar recommend ENT evaluation. Left upper lobe lung nodule demonstrates increased metabolic a ctivity. Cannot exclude a malignant process. No convincing evidence of leopoldo or distal inv olvement. PATHOLOGY: 02/06/2019 EBUS US guided biopsy of left parotid from 12/18/2018 ASSESSMENT: This is a 73-year-old male who is a currently actively smoking with a h istory of 35-gcvz-hidb who now uses electronic cigarette with a right upper lobe EBUS biopsy confirmed squamous cell carcinoma with negative malignancy found in the lymph nodes. PET s can from October showed some activity in his parotid gland was biopsied and was negative in Ju ne of by the ultrasound guided biopsy. The patient was referred by the director of nurses registry from [facility] for possible radiation treatment to the lung lesion. The patient lives in [place], [place] . PLAN: The risks and benefits of radiation therapy were discussed in detail with the patient. Our plan is as below: - He successfully underwent CT simulation today. - Will start radiation treatment next Saturday 02/24, 02/26, 03/02, 03/04, 03/06 total 5 fraction s. It will be 11 Gy x 5 fractions to 55 Gy. - Will coordinate with [place] ana to arrange his lodging where he can stay during the treatme nt. I communicated with . Liz York to coordinate the 's staying. Her ext at [facility] is [id number]. Zhang Myles MD PGY2 Radiation Medicine The attending of this encounter is Dr. Chapa who agrees with the findings and the plans. documented in this encounte r Plan of Treatment Not on filedocumented as of this encounter Results SIMULATION IMAGING (02/16/2019 3:03 [...] Primary | + + documented in this encounter
--- OUTSIDE RECORDS SUMMARY | ~2020-04-16 | XMS | Encounter Summary ---
Demographics + + + | Address | [address] | | | [place] [address] | + + + | Home Phone | | + + + | Preferred Language | Unknown | + + + | Marital Status | | + + + | Episcopalian Affiliation | 1026 | + + + | Race | White | + + + | Ethnic Group | Not or | + + + Author + + + | Author | [facility] | | | and [place] | + + + | Organization | [facility] | | | [...] [place] | | | | | [address] | | + + + + + | Jag Iniguez | ECON | Unknown | | + + + + + Care Team Providers + +------+ + | Care Job Setter Honing Name | Role | Phone | + [...] | | | | [address] | [place] [address] | | | | | [place] [address] | | | | | | [phone] | | | +--------+ + + + [...] CT ABDOMEN PELVIS W | Routin | 01/30/2013 | | Results for this | | WO CONTRAST | e | 1:15 PM | | procedure are in the | | | | PDT | | results section. | + +--------+ + + + documented in this encounter Results CT Abdomen Pelvis w wo Contrast (01/30/2013 1:15 PM PDT) + + | Specimen | [...]
--- OUTSIDE RECORDS SUMMARY | ~2020-04-16 | XMS | Encounter Summary ---
Demographics + + + | Address | [address] | | | [place] [address] | + + + | Home Phone | | + + + | Preferred Language | Unknown | + + + | Marital Status | Single | + + + | Amish Affiliation | Unknown | + + + | Race | White | + + + | Ethnic Group | Not or | + + + Author + + + | Author | [facility] | + + + | Organization | [facility] | + + + | Address | Unknown | + + + | Phone | Unavailable | + + + Support + + +---------+ + | Name | Relationship | Address | Phone | + + +---------+ + | Lesia Iniguez | ECON | Unknown | | + + +---------+ + Care Team Providers + +------+ + | Care Systems Analyst Developer Name | Role | Phone | + +------+ + | No Pcp Per Patient | PCP | Unavailable | + +------+ + Encounter Details +--------+ + + + + | Date | Type | Department | Care Team | Description | +--------+ + + + + | 03/03/ | Hospital | Radiation Oncology | | | | 2019 | Encounter | at [facility] [address] | | | | | [address] | | | | | | [address] | | | | | | [place], [place] | | | | | | [address] | | | | | | [phone] | | | +--------+ + + + [...]
--- OUTSIDE RECORDS SUMMARY | ~2020-04-16 | XMS | Encounter Summary ---
Demographics + + + | Address | [address] | | | [place] [address] | + + + | Home Phone | | + + + | Preferred Language | Unknown | + + + | Marital Status | | + + + | Taoist Affiliation | 1026 | + + + | Race | White | + + + | Ethnic Group | Not or | + + + Author + + + | Author | [facility] | | | and [...] [place] | | | | | [address] | | + + + + + | Jag Iniguez | ECON | Unknown | | + + + + + Care Team Providers + +------+ + | Care Lease Operator Name | Role | Phone | + +------+ + | David Whitfeild | PCP | | | MD | [...] | | | | Y[address]SEY | [place] [address] | | | | | [place] [address] | | | | | | [phone] | | | +--------+ + + + [...] +--------+ + + + | XR CHEST PA AND | Routin | 09/08/2014 | | Results for this | | LATERAL | e | 4:15 PM | | procedure are in the | | | | PST | | results section. | + +--------+ + + + documented in this encounter Results XR Chest PA and Lateral (09/08/2014 4:15 PM PST) + + | Specimen | [...]
--- OUTSIDE RECORDS SUMMARY | ~2020-04-16 | XMS | Encounter Summary ---
Demographics + + + | Address | [address] | | | [place] [address] | + + + | Home Phone | | + + + | Preferred Language | Unknown | + + + | Marital Status | | + + + | Mandaen Affiliation | 1026 | + + + | Race | White | + + + | Ethnic Group | Not or | + + + Author + + + | Author | [facility] | | | and [place] | + + + | Organization | [facility] | | | and [...] [place] | | | | | [address] | | + + + + + | Jag Iniguez | ECON | Unknown | | + + + + + Care Team Providers + +------+ + | Care Motion Picture Actor Name | Role | Phone | + +------+ + PCP | Unavailable | + +------+ + Encounter Details +--------+ + + + + | Date | Type | Department | Care Team | Description | +--------+ + + + + | 05/13/ | Hospital | [facility] | | | | 1999 | Encounter | MED CTR XRAY [address] | | | | | [address] [place] | | | | | | [place] [address] | | | | | | [phone] | | | +--------+ + + + [...]
[~2020-04-16 17:13] MED LIST: ASPIR 8181 MG PO; FINASTERIDE5 MG PO; FOLIC ACID1 MG PO; HYDROCODON-ACE1 EAC8 PO; MULTI VITAMIN1 EACH PO; NORCO 5-325 TA1 EACH PO; OMEPRAZOLE20 MG PO; STOOL SOFTENER240 MG PO; TERAZOSIN HCL10 MG PO; TOPROL XL50 MG PO; VITAMIN D1000 UNIT PO
--- NOTE | 2020-04-17 13:36 | EKG ---
[facility] [address] [facility] [place], [place] [address] Signed Normal sinus rhythm Septal infarct , age undetermined ST \T\ T wave abnormality, consider lateral ischemia Abnormal ECG No previous ECGs available Confirmed by MICHELLE KELLY MD ([id number]) on 04/17/2020 1:36:18 PM Electronically Signed By: MICHELLE KELLY MD 04/17/20 1336 PATIENT NAME: JESUS BOLTON JOS Electrocardiogram DATE OF : 43 PHYSICIAN: MICHELLE KELLY MD REPORT #: [id number] REPORT IS CONFIDENTIAL AND NOT TO BE RELEASED WITHOUT AUTHORIZATION
== END 2020-04-16 20:16 | disposition short-term general hospital (02) ==
LOC: ED 17:13
DX: I21.4 Non-ST elevation (NSTEMI) myocardial infarction (principal); I50.9 Heart failure, unspecified; N17.9 Acute kidney failure, unspecified; R91.8 Other nonspecific abnormal finding of lung field; Z85.118 Personal history of other malignant neoplasm of bronchus and lung; J45.909 Unspecified asthma, uncomplicated; Z88.2 Allergy status to sulfonamides; Z91.012 Allergy to eggs; Z79.899 Other long term (current) drug therapy; Z79.82 Long term (current) use of aspirin
CPT/HCPCS: 71045; 80053; 81001; 83735; 83880; 84484; 85025; 93005; 93010; 99285-25